=== PATIENT | female | born 1935 | race Caucasian/White ===

== ENCOUNTER 2016-12-03 10:08 | Emergency (ER) | payer MEDICARE ==
[~2016-12-03] VITALS: Ht 162.6 cm; Wt 87.5 kg
[2016-12-03] MEDS ORDERED: TORS10TA3 PO (11:00)
[2016-12-03] MEDS ORDERED: PRESCAP PO (11:00)
[2016-12-03] MEDS ORDERED: VITA50003 PO (11:00)
[2016-12-03] MEDS ORDERED: FISH1000 PO (11:00)
[2016-12-03] MEDS ORDERED: VITA-130 PO (11:00)
[2016-12-03] MEDS ORDERED: TYLE500T78 PO (11:00)
[2016-12-03] MEDS ORDERED: AMLO5TAB2 PO (11:00)
--- NOTE | 2016-12-03 13:02 | REP ---
Clinical: Chest pain . Comparison: 01/04/2016 . Technique: PA and lateral. Findings: The mediastinum and cardiac silhouette are normal. The lung baires demonstrate chronic changes without acute consolidation, effusion, or pneumothorax. The skeletal structures are intact and normal. Impression: 1. No acute cardiopulmonary process. Signed by Rasta Amezcua MD 12/03/2016 12:54 P
[2016-12-03 15:07] LABS: BASO % 0.2 % (0.0-1.0); EOS % 0.6 % (0.0-3.0); LARGE UNSTAINED CELL # 0.1 K/mm3 (0.0-0.4); LARGE UNSTAINED CELL % 1.4 % (0.0-4.0); LYMPH # 1.8 K/mm3 (1.5-4.5); LYMPH % 31.2 % (24.0-44.0); MEAN CORPUSCULAR HEMOGLOBIN 34.7 pg (27.0-33.0); MEAN CORPUSCULAR HGB CONC 33.3 g/dl (32.0-36.5); MEAN CORPUSCULAR VOLUME 104.1 fl (80.0-96.0); MONO # 0.3 K/mm3 (0.0-0.8); MONO % 5.7 % (0.0-5.0); NEUTROPHILS # 3.4 K/mm3 (1.8-7.7); PLATELET COUNT, AUTOMATED 205 k/mm3 (150-450); RED CELL DISTRIBUTION WIDTH 13.2 % (11.5-14.5); WHITE BLOOD COUNT 5.6 K/mm3 (4.0-10.0)
[2016-12-03 15:29] LABS: ANION GAP 11 MEQ/L (8-16); BLOOD UREA NITROGEN 32 MG/DL (7-18); CALCIUM LEVEL 9.3 MG/DL (8.8-10.2); CARBON DIOXIDE LEVEL 27 MEQ/L (21-32); CHLORIDE LEVEL 103 MEQ/L (98-107); CREATININE FOR GFR 1.45 MG/DL (0.55-1.02); GLOMERULAR FILTRATION RATE 36.7 (>32); GLUCOSE, FASTING 99 MG/DL (83-110); POTASSIUM SERUM 4.1 MEQ/L (3.5-5.1); SODIUM LEVEL 141 MEQ/L (136-145)
[2016-12-03 16:43] VITALS: BP 145/70
--- NOTE | 2016-12-04 10:15 | ECGEPIP ---
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
== END 2016-12-03 17:12 | disposition home or self-care (01) ==
LOC: M ED 11:46
DX: R42 Dizziness and giddiness (principal)

== ENCOUNTER → 2017-02-12 | Outpatient (REF) | payer MEDICARE ==
[~2017-02-12] MED LIST: AMLO5TAB2 PO; FISH1000 PO; PRESCAP PO; TORS10TA3 PO; TYLE500T78 PO; VITA-130 PO; VITA50003 PO
[2017-02-12 13:48] LABS: PERCENT SATURATION 25.6 % (13.2-37.4)
== END ==
LOC: M LAB REF 12:54
PROVIDERS: ATTEND Internal Medicine
DX: D64.9 Anemia, unspecified (principal); N25.81 Secondary hyperparathyroidism of renal origin

== ENCOUNTER → 2017-08-14 | Outpatient (REF) | payer MEDICARE ==
[~2017-08-14] MED LIST changes: -VITA-130 PO; +VITA1CAP40 PO; -VITA50003 PO; +VITA500T PO
[2017-08-14 18:56] LABS: FOLATE 11.5 NG/ML
== END ==
LOC: M LAB REF 17:08
PROVIDERS: ATTEND Internal Medicine
DX: D52.8 Other folate deficiency anemias (principal); N25.81 Secondary hyperparathyroidism of renal origin

== ENCOUNTER → 2019-08-21 | Outpatient (REF) | payer MEDICARE ==
[~2019-08-21] MED LIST changes: -AMLO5TAB2 PO; +AMLO5TAB6 PO; -VITA1CAP40 PO; +VITA50005 PO
== END ==
LOC: M LAB REF 12:16
PROVIDERS: ATTEND Internal Medicine
DX: N25.81 Secondary hyperparathyroidism of renal origin (principal)

== ENCOUNTER → 2020-02-23 | Outpatient (REF) | payer MEDICARE ==
[~2020-02-23] MED LIST changes: +AMLO1TAB24 PO; -AMLO5TAB6 PO; +VITA-243 PO; -VITA500T PO
== END ==
LOC: M LAB REF 18:11
PROVIDERS: ATTEND Internal Medicine
DX: N18.3 Chronic kidney disease, stage 3 (moderate) (principal); N25.81 Secondary hyperparathyroidism of renal origin

== ENCOUNTER → 2020-08-17 | Outpatient (REF) | payer MEDICARE | LOC: M LAB REF 17:03 | PROVIDERS: ATTEND Internal Medicine | DX: N25.81 Secondary hyperparathyroidism of renal origin (principal) ==

== ENCOUNTER → 2021-02-28 | Outpatient (REF) | payer MEDICARE | LOC: M LAB REF 16:21 | PROVIDERS: ATTEND Internal Medicine | DX: N25.81 Secondary hyperparathyroidism of renal origin (principal) ==

== ENCOUNTER → 2021-08-30 | Outpatient (REF) | payer MEDICARE | LOC: M LAB REF 11:52 | PROVIDERS: ATTEND Internal Medicine | DX: N25.81 Secondary hyperparathyroidism of renal origin (principal) ==

== ENCOUNTER → 2022-03-26 | Outpatient (REF) | payer MEDICARE | LOC: M LAB REF 12:13 | PROVIDERS: ATTEND Internal Medicine | DX: N18.32 Chronic kidney disease, stage 3b (principal) ==

== ENCOUNTER 2022-07-26 10:41 | Inpatient (IN) | payer MEDICARE ==
[~2022-07-26] VITALS: Ht 165.1 cm; Wt 92.9 kg
[2022-07-26 11:49] LABS: VENOUS BASE EXCESS -0.6 (-2.0-2.0); VENOUS HCO3 26.2 MEQ/L (23.0-27.0); VENOUS PARTIAL PRESSURE CO2 51.5 mmHg (38.0-50.0); VENOUS PARTIAL PRESSURE O2 55.6 mmHg (30.0-50.0); VENOUS PH 7.324 UNITS (7.330-7.430); VENOUS STANDARD HCO3 23.6 MEQ/L; VENOUS TOTAL CO2 27.8 MEQ/L (24.0-28.0)
[2022-07-26 11:51] LABS: BASO % 0.2 % (0.0-1.0); HEMATOCRIT 41.3 % (36.0-47.0); HEMOGLOBIN 13.8 g/dl (12.0-15.5); LYMPH # 0.8 10^3/uL (1.5-5.0); LYMPH % 7.4 % (24.0-44.0); MEAN CORPUSCULAR HEMOGLOBIN 34.1 pg (27.0-33.0); MEAN CORPUSCULAR HGB CONC 33.4 g/dl (32.0-36.5); MONO % 9.3 % (2.0-8.0); NEUTROPHILS # 8.9 10^3/uL (1.5-8.5); NEUTROPHILS % 82.7 % (36.0-66.0); RED BLOOD COUNT 4.05 10^6/uL (4.00-5.40); WHITE BLOOD COUNT 10.8 10^3/uL (4.0-10.0)
[2022-07-26] MEDS ORDERED: NS 1,000 ML IV ONE ×2 (12:05→15:40)
[2022-07-26 14:11] LABS: AMPHETAMINES LEVEL URINE NEGATIVE (NEGATIVE); BARBITURATES URINE NEGATIVE (NEGATIVE); BENZODIAZEPINES URINE NEGATIVE (NEGATIVE); CANNABINOIDS URINE NEGATIVE (NEGATIVE); COCAINE METABOLITE URINE NEGATIVE (NEGATIVE); METHADONE URINE NEGATIVE (NEGATIVE); OPIATES URINE NEGATIVE (NEGATIVE); PHENCYCLIDINE URINE NEGATIVE (NEGATIVE)
[2022-07-26 15:33] LABS: ACETAMINOPHEN LEVEL < 2.0 UG/ML (10.0-20.0); ALBUMIN 2.9 G/DL (3.2-5.2); ALKALINE PHOSPHATASE 101 U/L (46-116); ALT/SGPT 40 U/L (7.0-40); AST/SGOT 135 U/L (<34); BILIRUBIN,DIRECT 0.1 MG/DL (<0.4); BILIRUBIN,TOTAL 0.7 MG/DL (0.3-1.2); BLOOD UREA NITROGEN 31 MG/DL (9-23); CALCIUM LEVEL 9.6 MG/DL (8.3-10.6); CARBON DIOXIDE LEVEL 24 MMOL/L (20-31); CHLORIDE LEVEL 103 MMOL/L (98-107); CK-MB VALUE MASS 23.3 NG/ML (<3.6); CPK CREATINE PHOSPHOKINASE 3274 U/L (34-145); ETHYL ALCOHOL (ETHANOL) 0.005 % (0.000-0.010); GLOMERULAR FILTRATION RATE > 60.0 (>32); GLUCOSE, FASTING 94 MG/DL (74-106); MB/CK RELATIVE INDEX 0.71 (< OR =4); POTASSIUM SERUM 4.3 MMOL/L (3.5-5.1); SODIUM LEVEL 141 MMOL/L (136-145); THYROID STIMULATING HORMONE 2.537 uIU/ML (0.55-4.78); TOTAL PROTEIN 6.4 G/DL (5.7-8.2)
[2022-07-26 15:45] LABS: SALICYLATE LEVEL < 3.0 MG/DL (<30)
[2022-07-26 15:51] LABS: OSMOLALITY SERUM 303 MOSM/KG (280-301)
[2022-07-26] MEDS ORDERED: MED REC COMMENT (18:05)
[2022-07-26] MEDS ORDERED: ERGO500029 PO (18:05)
[2022-07-26] MEDS ORDERED: POTA10CA32 PO (18:05)
[2022-07-26] MEDS ORDERED: INDA1.253 PO (18:05)
[2022-07-26] MEDS ORDERED: AMLO1TAB24 PO (18:05)
[2022-07-26 18:06] LABS: ABG HCO3 24.3 MEQ/L (22.0-26.0); ABG O2 SATURATION 94.2 % (95.0-99.0); ABG PARTIAL PRESSURE CO2 38.5 mmHg (35.0-45.0); ABG PARTIAL PRESSURE O2 70.1 mmHg (75.0-100.0); ABG STANDARD HCO3 24.4 MEQ/L (22.0-26.0); ABG TOTAL CO2 25.5 MEQ/L (23.0-31.0); ABG pH (ARTERIAL) 7.418 UNITS (7.350-7.450)
[2022-07-26] MEDS ORDERED: HOME MED LIST COMPLETE! XX SCH (18:10)
[2022-07-26] MEDS ORDERED: LABETALOL 100MG/20ML VIAL IV PRN (18:30)
[2022-07-26] MEDS: NS 1,000 ML IV SCH (18:51)
[2022-07-26] MEDS ORDERED: ISOVUE-370 76% 100ML VIAL As Ordered ONE (22:30)
[2022-07-26] MEDS ORDERED: ASPIRIN 300 MG SUPP PR ONE (23:00)
[2022-07-26] MEDS: ATORVASTATIN 20 MG TAB PO SCH (23:56)
[2022-07-27 00:15] LABS: HEMOGLOBIN A1c 5.3 % (4.0-6.0)
[2022-07-27 01:14] LABS: CHOLESTEROL RISK RATIO 3.89 (<5); CK-MB VALUE MASS 18.2 NG/ML (<3.6); HDL CHOLESTEROL 49.6 MG/DL (>40); LDL CHOLESTEROL 120.6 MG/DL (<100); MB/CK RELATIVE INDEX 0.86 (< OR =4)
[2022-07-27 02:00] VITALS: BP 191/80
[2022-07-27] MEDS: NS 1,000 ML IV SCH ×3 (03:07→18:30)
[2022-07-27 04:00] VITALS: BP 158/67
[2022-07-27] MEDS: HEPARIN SOD (PORCINE) 5000UNITS/ML 1ML VIAL/SYRINGE SQ SCH ×3 (06:03→21:12)
[2022-07-27 07:26] LABS: HEMATOCRIT 33.1 % (36.0-47.0); MEAN CORPUSCULAR HEMOGLOBIN 34.4 pg (27.0-33.0); MEAN CORPUSCULAR HGB CONC 32.6 g/dl (32.0-36.5); MEAN CORPUSCULAR VOLUME 105.4 fl (80.0-96.0); PLATELET COUNT, AUTOMATED 215 10^3/uL (150-450); RED BLOOD COUNT 3.14 10^6/uL (4.00-5.40); WHITE BLOOD COUNT 7.9 10^3/uL (4.0-10.0)
[2022-07-27 07:39] LABS: HEMOGLOBIN 10.8 g/dl (12.0-15.5)
[2022-07-27 08:19] LABS: BLOOD UREA NITROGEN 26 MG/DL (9-23); CALCIUM LEVEL 8.6 MG/DL (8.3-10.6); CARBON DIOXIDE LEVEL 24 MMOL/L (20-31); CHLORIDE LEVEL 108 MMOL/L (98-107); CPK CREATINE PHOSPHOKINASE 1429 U/L (34-145); GLOMERULAR FILTRATION RATE > 60.0 (>32); GLUCOSE, FASTING 82 MG/DL (74-106); MAGNESIUM LEVEL 1.8 MG/DL (1.8-2.4); PHOSPHORUS LEVEL 3.3 MG/DL (2.4-5.1); POTASSIUM SERUM 3.6 MMOL/L (3.5-5.1); SODIUM LEVEL 143 MMOL/L (136-145)
[2022-07-27 08:29] VITALS: BP 156/67
[2022-07-27] MEDS ORDERED: ASPIRIN 300 MG SUPP PR SCH (09:00)
[2022-07-27] MEDS ORDERED: amLODIPine 5 MG TAB PO SCH (09:00)
[2022-07-27 13:35] VITALS: BP 175/75
[2022-07-27] MEDS ORDERED: MAGNESIUM OXIDE 400MG TAB (MAG-OX) PO ONE (14:55)
[2022-07-27] MEDS ORDERED: POTASSIUM CHLORIDE 10% LIQ 20 MEQ/15 ML UDC PO ONE (14:55)
[2022-07-27 15:52] VITALS: BP 168/70
[2022-07-27] MEDS: ASPIRIN 81MG ENTERIC TABLET PO SCH (16:35)
[2022-07-27] MEDS: amLODIPine 5 MG TAB PO SCH (16:36)
[2022-07-27 19:26] VITALS: BP 184/74
[2022-07-27] MEDS: ATORVASTATIN 20 MG TAB PO SCH (20:07)
[2022-07-27] MEDS ORDERED: TAMSULOSIN 0.4 MG CAP PO ONE (20:55)
[2022-07-28] VITALS (7 sets, daily range): BP systolic 139–165; BP diastolic 58–83
[2022-07-28] MEDS: NS 1,000 ML IV SCH (02:18)
[2022-07-28] MEDS: HEPARIN SOD (PORCINE) 5000UNITS/ML 1ML VIAL/SYRINGE SQ SCH ×3 (05:20→21:27)
[2022-07-28 05:54] LABS: HEMATOCRIT 30.8 % (36.0-47.0); HEMOGLOBIN 9.8 g/dl (12.0-15.5); MEAN CORPUSCULAR HGB CONC 31.8 g/dl (32.0-36.5); MEAN CORPUSCULAR VOLUME 106.9 fl (80.0-96.0); PLATELET COUNT, AUTOMATED 174 10^3/uL (150-450); RED BLOOD COUNT 2.88 10^6/uL (4.00-5.40); WHITE BLOOD COUNT 6.1 10^3/uL (4.0-10.0)
[2022-07-28 06:23] LABS: BLOOD UREA NITROGEN 26 MG/DL (9-23); CALCIUM LEVEL 8.3 MG/DL (8.3-10.6); CARBON DIOXIDE LEVEL 23 MMOL/L (20-31); CHLORIDE LEVEL 111 MMOL/L (98-107); CPK CREATINE PHOSPHOKINASE 793 U/L (34-145); GLOMERULAR FILTRATION RATE > 60.0 (>32); GLUCOSE, FASTING 95 MG/DL (74-106); MAGNESIUM LEVEL 1.8 MG/DL (1.8-2.4); PHOSPHORUS LEVEL 2.6 MG/DL (2.4-5.1); POTASSIUM SERUM 3.7 MMOL/L (3.5-5.1); SODIUM LEVEL 144 MMOL/L (136-145)
[2022-07-28] MEDS: ASPIRIN 81MG ENTERIC TABLET PO SCH (09:10)
[2022-07-28] MEDS: ACETAMINOPHEN TAB 650MG DOSE (2X325MG) PO PRN ×2 (09:17→20:02)
[2022-07-28] MEDS ORDERED: PILL CUTTER 1 EACH XX PRN (10:35)
[2022-07-28] MEDS: LOSARTAN 25 MG TAB PO SCH (10:43)
[2022-07-28] MEDS: amLODIPine 5 MG TAB PO SCH (18:05)
[2022-07-28] MEDS: ATORVASTATIN 20 MG TAB PO SCH (20:00)
[2022-07-29] VITALS: BP 150/64
[2022-07-29] MEDS: ACETAMINOPHEN TAB 650MG DOSE (2X325MG) PO PRN ×4 (01:58→21:15)
[2022-07-29 04:00] VITALS: BP 166/74
[2022-07-29] MEDS: HEPARIN SOD (PORCINE) 5000UNITS/ML 1ML VIAL/SYRINGE SQ SCH ×3 (05:38→21:15)
[2022-07-29 07:30] LABS: BLOOD UREA NITROGEN 25 MG/DL (9-23); CALCIUM LEVEL 8.1 MG/DL (8.3-10.6); CARBON DIOXIDE LEVEL 24 MMOL/L (20-31); CHLORIDE LEVEL 110 MMOL/L (98-107); CPK CREATINE PHOSPHOKINASE 486 U/L (34-145); CREATININE FOR GFR 0.87 MG/DL (0.55-1.30); GLOMERULAR FILTRATION RATE > 60.0 (>32); GLUCOSE, FASTING 91 MG/DL (74-106); MAGNESIUM LEVEL 1.9 MG/DL (1.8-2.4); PHOSPHORUS LEVEL 2.6 MG/DL (2.4-5.1); POTASSIUM SERUM 3.7 MMOL/L (3.5-5.1); SODIUM LEVEL 144 MMOL/L (136-145)
[2022-07-29 08:00] VITALS: BP 168/70
[2022-07-29] MEDS: ASPIRIN 81MG ENTERIC TABLET PO SCH (08:25)
[2022-07-29] MEDS: LOSARTAN 25 MG TAB PO SCH (08:26)
[2022-07-29] MEDS ORDERED: MORPHINE 2 MG/ML 1ML VIAL IV ONE (10:25)
[2022-07-29] MEDS ORDERED: LOSARTAN 25 MG TAB PO ONE (13:45)
[2022-07-29 14:00] VITALS: BP 142/78
[2022-07-29 16:00] VITALS: BP 152/60
[2022-07-29] MEDS: amLODIPine 5 MG TAB PO SCH (17:52)
[2022-07-29] MEDS ORDERED: BACLOFEN 10 MG TAB PO ONE (18:25)
[2022-07-29 20:27] VITALS: BP 170/75
[2022-07-29] MEDS ORDERED: hydrALAZINE 20MG/ML 1ML VIAL (J0360 PER 20MG) IV ONE (21:00)
[2022-07-29] MEDS: ATORVASTATIN 20 MG TAB PO SCH (21:15)
[2022-07-30] VITALS (20 sets, daily range): BP systolic 160–189; BP diastolic 66–83; O2SAT 93–96
[2022-07-30] MEDS: HEPARIN SOD (PORCINE) 5000UNITS/ML 1ML VIAL/SYRINGE SQ SCH ×3 (06:15→22:07)
[2022-07-30] MEDS ORDERED: DIOV80TA3 PO (08:39)
[2022-07-30] MEDS ORDERED: ATOR1TAB21 PO (08:39)
[2022-07-30] MEDS ORDERED: ASPI81TAEC PO (08:39)
[2022-07-30] MEDS ORDERED: LOSARTAN 25 MG TAB PO SCH ×2 (09:00)
[2022-07-30] MEDS: VALSARTAN 80 MG TAB (DIOVAN) PO SCH (09:07)
[2022-07-30] MEDS: ASPIRIN 81MG ENTERIC TABLET PO SCH (09:07)
[2022-07-30] MEDS: ACETAMINOPHEN TAB 650MG DOSE (2X325MG) PO PRN ×2 (09:09→13:36)
[2022-07-30 10:35] LABS: FERRITIN 196.5 NG/ML (7.3-270.7); PERCENT SATURATION 14.5 % (13.2-45.0)
[2022-07-30 11:06] LABS: FOLATE 14.68 NG/ML (>5.4)
[2022-07-30] MEDS ORDERED: BACLOFEN 10 MG TAB PO ONE (13:30)
[2022-07-30] MEDS: amLODIPine 5 MG TAB PO SCH ×2 (13:42→21:04)
[2022-07-30] MEDS ORDERED: CHLORTHALIDONE 25 MG TAB PO ONE (15:25)
[2022-07-30] MEDS ORDERED: hydrALAZINE 20MG/ML 1ML VIAL (J0360 PER 20MG) IV PRN (17:50)
[2022-07-30] MEDS: ATORVASTATIN 20 MG TAB PO SCH (21:04)
[2022-07-31 04:00] VITALS: BP 154/67
[2022-07-31] MEDS: HEPARIN SOD (PORCINE) 5000UNITS/ML 1ML VIAL/SYRINGE SQ SCH ×2 (05:55→13:24)
[2022-07-31 07:32] VITALS: BP 162/86
[2022-07-31] MEDS: amLODIPine 5 MG TAB PO SCH (08:39)
[2022-07-31 08:40] VITALS: BP 162/86
[2022-07-31] MEDS: ASPIRIN 81MG ENTERIC TABLET PO SCH (08:40)
[2022-07-31] MEDS: VALSARTAN 80 MG TAB (DIOVAN) PO SCH (08:40)
[2022-07-31] MEDS ORDERED: CHLORTHALIDONE 25 MG TAB PO SCH (09:00)
[2022-07-31 11:27] VITALS: BP 135/62
[2022-07-31 15:39] VITALS: BP 148/65
== END 2022-07-31 16:30 | DRG 64 ==
LOC: M ED 10:41 → M ED INP 18:28 → M PCU 07-27 01:25
PROVIDERS: ADMIT Internal Medicine; ATTEND Physical Medicine & Rehabilitation
PROC: B246ZZZ Ultrasonography of Right and Left Heart (ICD-10-PCS; principal; 2022-07-28)
DX: I63.89 Other cerebral infarction (principal); G93.41 Metabolic encephalopathy; M62.82 Rhabdomyolysis; N39.0 Urinary tract infection, site not specified; Z66 Do not resuscitate; I10 Essential (primary) hypertension; Z79.899 Other long term (current) drug therapy; Z88.0 Allergy status to penicillin; Z88.2 Allergy status to sulfonamides; Z88.8 Allergy status to other drugs, medicaments and biological substances; G47.33 Obstructive sleep apnea (adult) (pediatric); M79.661 Pain in right lower leg; D53.9 Nutritional anemia, unspecified; E86.0 Dehydration; B96.20 Unspecified Escherichia coli [E. coli] as the cause of diseases classified elsewhere

== ENCOUNTER 2022-07-31 13:56 | Inpatient (IN) | payer MEDICARE ==
[~2022-07-31] VITALS: Ht 160 cm; Wt 85.0 kg
[~2022-07-31 13:56] MED LIST changes: +ASPI81TAEC PO; +ATOR1TAB21 PO; +DIOV80TA3 PO; +ERGO500029 PO; +INDA1.253 PO; +MED REC COMMENT; +POTA10CA33 PO
[2022-07-31] MEDS ORDERED: BISACODYL 5MG TAB PO PRN (14:35)
[2022-07-31] MEDS ORDERED: ACETAMINOPHEN TAB 650MG DOSE (2X325MG) PO PRN (14:35)
[2022-07-31 16:00] VITALS: BP 155/76
[2022-07-31] MEDS: REMEDY PHYTOPLEX Z-GUARD PASTE 113GM TUBE (FROM STOREROOM PRODUCT) TOP SCH ×2 (16:00→20:19)
[2022-07-31] MEDS: **hydrALAZINE HCL** 25 MG TAB PO SCH (17:54)
[2022-07-31] MEDS: PANTOPRAZOLE 40MG TAB (PROTONIX) PO SCH (17:54)
[2022-07-31] MEDS: amLODIPine 5 MG TAB PO SCH (20:17)
[2022-07-31 20:18] VITALS: BP 144/60
[2022-07-31] MEDS: DOCUSATE SODIUM 100MG CAPSULE PO SCH (20:18)
[2022-07-31] MEDS: SENNA 8.6 MG TAB (SENOKOT) PO SCH (20:18)
[2022-07-31] MEDS: ATORVASTATIN 20 MG TAB PO SCH (20:18)
[2022-07-31] MEDS: cefTRIAXone SOD 1 GM in D5W MINI-BAG PLUS 50 ML IV SCH (20:18)
[2022-07-31] MEDS: HEPARIN SOD (PORCINE) 5000UNITS/ML 1ML VIAL/SYRINGE SC SCH (22:17)
[2022-07-31 23:53] VITALS: BP 158/50
[2022-08-01] MEDS: **hydrALAZINE HCL** 25 MG TAB PO SCH ×4 (00:02→17:54)
[2022-08-01] MEDS: HEPARIN SOD (PORCINE) 5000UNITS/ML 1ML VIAL/SYRINGE SC SCH ×4 (05:58→21:32)
[2022-08-01 06:00] VITALS: BP 142/52
[2022-08-01 06:40] LABS: BASO % 0.2 % (0.0-1.0); EOS # 0.1 10^3/uL (0.0-0.5); EOS % 1.6 % (0.0-3.0); HEMATOCRIT 34.6 % (36.0-47.0); HEMOGLOBIN 11.3 g/dl (12.0-15.5); LYMPH # 1.8 10^3/uL (1.5-5.0); LYMPH % 20.7 % (24.0-44.0); MEAN CORPUSCULAR HEMOGLOBIN 34.1 pg (27.0-33.0); MEAN CORPUSCULAR HGB CONC 32.7 g/dl (32.0-36.5); MEAN CORPUSCULAR VOLUME 104.5 fl (80.0-96.0); MONO # 0.8 10^3/uL (0.0-0.8); MONO % 9.5 % (2.0-8.0); NEUTROPHILS # 5.9 10^3/uL (1.5-8.5); NEUTROPHILS % 67.3 % (36.0-66.0); PLATELET COUNT, AUTOMATED 245 10^3/uL (150-450); RED BLOOD COUNT 3.31 10^6/uL (4.00-5.40); WHITE BLOOD COUNT 8.7 10^3/uL (4.0-10.0)
[2022-08-01 07:32] LABS: ALBUMIN 2.2 G/DL (3.2-5.2); BILIRUBIN,TOTAL 0.4 MG/DL (0.3-1.2); CALCIUM LEVEL 8.4 MG/DL (8.3-10.6); CREATININE FOR GFR 0.98 MG/DL (0.55-1.30); GLOMERULAR FILTRATION RATE 56.9 (>32); POTASSIUM SERUM 3.6 MMOL/L (3.5-5.1); TOTAL PROTEIN 5.5 G/DL (5.7-8.2)
[2022-08-01] MEDS: ASPIRIN 81MG ENTERIC TABLET PO SCH ×2 (08:11→08:13)
[2022-08-01] MEDS: amLODIPine 5 MG TAB PO SCH ×2 (08:11→20:26)
[2022-08-01] MEDS: DOCUSATE SODIUM 100MG CAPSULE PO SCH ×2 (08:11→20:25)
[2022-08-01] MEDS: VALSARTAN 80 MG TAB (DIOVAN) PO SCH (08:12)
[2022-08-01] MEDS: POTASSIUM CHLORIDE 10MEQ SR TABLET PO SCH (08:12)
[2022-08-01] MEDS: CHLORTHALIDONE 25 MG TAB PO SCH (08:12)
[2022-08-01] MEDS: PANTOPRAZOLE 40MG TAB (PROTONIX) PO SCH (08:12)
[2022-08-01] MEDS: REMEDY PHYTOPLEX Z-GUARD PASTE 113GM TUBE (FROM STOREROOM PRODUCT) TOP SCH ×3 (08:13→20:25)
[2022-08-01] MEDS: LIDOCAINE 5% (LIDODERM) PATCH TD SCH (11:26)
[2022-08-01 14:00] VITALS: BP 107/52
[2022-08-01] MEDS: cefTRIAXone SOD 1 GM in D5W MINI-BAG PLUS 50 ML IV SCH (17:53)
[2022-08-01] MEDS: ACETAMINOPHEN 500 MG TAB PO PRN (18:19)
[2022-08-01 20:00] VITALS: BP 143/65
[2022-08-01] MEDS: ATORVASTATIN 20 MG TAB PO SCH (20:25)
[2022-08-01] MEDS: SENNA 8.6 MG TAB (SENOKOT) PO SCH (20:25)
[2022-08-02] MEDS: **hydrALAZINE HCL** 25 MG TAB PO SCH ×4 (00:19→17:42)
[2022-08-02] MEDS: HEPARIN SOD (PORCINE) 5000UNITS/ML 1ML VIAL/SYRINGE SC SCH ×3 (05:15→21:02)
[2022-08-02 05:54] VITALS: BP 161/72
[2022-08-02] MEDS: ASPIRIN 81MG ENTERIC TABLET PO SCH (09:27)
[2022-08-02] MEDS: DOCUSATE SODIUM 100MG CAPSULE PO SCH ×2 (09:27→20:58)
[2022-08-02] MEDS: PANTOPRAZOLE 40MG TAB (PROTONIX) PO SCH (09:28)
[2022-08-02] MEDS: CHLORTHALIDONE 25 MG TAB PO SCH (09:28)
[2022-08-02] MEDS: amLODIPine 5 MG TAB PO SCH ×2 (09:28→20:58)
[2022-08-02] MEDS: DULoxetine 20MG CAP (CYMBALTA) PO SCH (09:28)
[2022-08-02] MEDS: ACETAMINOPHEN 500 MG TAB PO PRN ×2 (09:29→18:20)
[2022-08-02] MEDS: REMEDY PHYTOPLEX Z-GUARD PASTE 113GM TUBE (FROM STOREROOM PRODUCT) TOP SCH ×3 (09:30→20:59)
[2022-08-02] MEDS: LIDOCAINE 5% (LIDODERM) PATCH TD SCH (09:30)
[2022-08-02] MEDS: VALSARTAN 80 MG TAB (DIOVAN) PO SCH (09:32)
[2022-08-02 14:00] VITALS: BP 151/69
[2022-08-02] MEDS: cefTRIAXone SOD 1 GM in D5W MINI-BAG PLUS 50 ML IV SCH (17:42)
[2022-08-02 20:20] VITALS: BP 138/63
[2022-08-02] MEDS: SENNA 8.6 MG TAB (SENOKOT) PO SCH (20:58)
[2022-08-02] MEDS: ATORVASTATIN 20 MG TAB PO SCH (20:59)
[2022-08-03] MEDS: **hydrALAZINE HCL** 25 MG TAB PO SCH ×5 (00:07→23:01)
[2022-08-03] MEDS: HEPARIN SOD (PORCINE) 5000UNITS/ML 1ML VIAL/SYRINGE SC SCH ×3 (05:19→22:57)
[2022-08-03] MEDS: ACETAMINOPHEN 500 MG TAB PO PRN ×2 (05:25→17:32)
[2022-08-03 06:00] VITALS: BP 134/56
[2022-08-03 07:17] LABS: BASO % 0.3 % (0.0-1.0); EOS # 0.1 10^3/uL (0.0-0.5); EOS % 1.5 % (0.0-3.0); HEMATOCRIT 30.5 % (36.0-47.0); LYMPH # 1.5 10^3/uL (1.5-5.0); LYMPH % 21.6 % (24.0-44.0); MEAN CORPUSCULAR HEMOGLOBIN 34.5 pg (27.0-33.0); MEAN CORPUSCULAR HGB CONC 32.8 g/dl (32.0-36.5); MEAN CORPUSCULAR VOLUME 105.2 fl (80.0-96.0); MONO # 0.7 10^3/uL (0.0-0.8); MONO % 9.5 % (2.0-8.0); NEUTROPHILS # 4.7 10^3/uL (1.5-8.5); NEUTROPHILS % 66.3 % (36.0-66.0); PLATELET COUNT, AUTOMATED 251 10^3/uL (150-450); WHITE BLOOD COUNT 7.1 10^3/uL (4.0-10.0)
[2022-08-03 07:46] LABS: CALCIUM LEVEL 8.4 MG/DL (8.3-10.6); CREATININE FOR GFR 1.21 MG/DL (0.55-1.30); GLOMERULAR FILTRATION RATE 44.6 (>32); POTASSIUM SERUM 3.8 MMOL/L (3.5-5.1)
[2022-08-03] MEDS: ASPIRIN 81MG ENTERIC TABLET PO SCH (08:54)
[2022-08-03] MEDS: VALSARTAN 80 MG TAB (DIOVAN) PO SCH (08:54)
[2022-08-03] MEDS: DULoxetine 20MG CAP (CYMBALTA) PO SCH (08:55)
[2022-08-03] MEDS: POTASSIUM CHLORIDE 10MEQ SR TABLET PO SCH (08:55)
[2022-08-03] MEDS: amLODIPine 5 MG TAB PO SCH ×2 (08:55→20:44)
[2022-08-03] MEDS: PANTOPRAZOLE 40MG TAB (PROTONIX) PO SCH (08:55)
[2022-08-03] MEDS: DOCUSATE SODIUM 100MG CAPSULE PO SCH ×2 (08:55→20:45)
[2022-08-03] MEDS: CHLORTHALIDONE 25 MG TAB PO SCH (08:55)
[2022-08-03] MEDS: LIDOCAINE 5% (LIDODERM) PATCH TD SCH (08:57)
[2022-08-03] MEDS: REMEDY PHYTOPLEX Z-GUARD PASTE 113GM TUBE (FROM STOREROOM PRODUCT) TOP SCH ×3 (08:58→20:46)
[2022-08-03 14:00] VITALS: BP 144/71
[2022-08-03] MEDS: CEFDINIR 300 MG CAP (OMNICEF) PO SCH (17:27)
[2022-08-03 20:06] VITALS: BP 138/54
[2022-08-03] MEDS: ATORVASTATIN 20 MG TAB PO SCH (20:44)
[2022-08-03] MEDS: SENNA 8.6 MG TAB (SENOKOT) PO SCH (20:45)
[2022-08-04 04:16] VITALS: BP 146/56
[2022-08-04] MEDS: HEPARIN SOD (PORCINE) 5000UNITS/ML 1ML VIAL/SYRINGE SC SCH ×3 (05:34→22:35)
[2022-08-04] MEDS: **hydrALAZINE HCL** 25 MG TAB PO SCH ×2 (05:37→12:21)
[2022-08-04 08:51] VITALS: BP 120/68
[2022-08-04] MEDS: ASPIRIN 81MG ENTERIC TABLET PO SCH (08:53)
[2022-08-04] MEDS: DOCUSATE SODIUM 100MG CAPSULE PO SCH ×2 (08:53→22:35)
[2022-08-04] MEDS: DULoxetine 20MG CAP (CYMBALTA) PO SCH (08:53)
[2022-08-04] MEDS: VALSARTAN 80 MG TAB (DIOVAN) PO SCH (08:54)
[2022-08-04] MEDS: PANTOPRAZOLE 40MG TAB (PROTONIX) PO SCH (08:54)
[2022-08-04] MEDS: LIDOCAINE 5% (LIDODERM) PATCH TD SCH (08:55)
[2022-08-04] MEDS: REMEDY PHYTOPLEX Z-GUARD PASTE 113GM TUBE (FROM STOREROOM PRODUCT) TOP SCH ×3 (08:55→22:37)
[2022-08-04] MEDS: CHLORTHALIDONE 25 MG TAB PO SCH (08:56)
[2022-08-04] MEDS: amLODIPine 5 MG TAB PO SCH ×2 (08:56→22:36)
[2022-08-04 12:19] VITALS: BP 122/70
[2022-08-04 14:00] VITALS: BP 120/55
[2022-08-04] MEDS: CEFDINIR 300 MG CAP (OMNICEF) PO SCH (17:58)
[2022-08-04 20:00] VITALS: BP 138/63
[2022-08-04] MEDS: SENNA 8.6 MG TAB (SENOKOT) PO SCH (22:35)
[2022-08-04] MEDS: ATORVASTATIN 20 MG TAB PO SCH (22:35)
[2022-08-05] MEDS: HEPARIN SOD (PORCINE) 5000UNITS/ML 1ML VIAL/SYRINGE SC SCH ×3 (05:26→20:49)
[2022-08-05 06:00] VITALS: BP 127/60
[2022-08-05] MEDS: REMEDY PHYTOPLEX Z-GUARD PASTE 113GM TUBE (FROM STOREROOM PRODUCT) TOP SCH ×3 (09:00→20:49)
[2022-08-05] MEDS: DULoxetine 20MG CAP (CYMBALTA) PO SCH (09:08)
[2022-08-05] MEDS: DOCUSATE SODIUM 100MG CAPSULE PO SCH ×2 (09:08→20:48)
[2022-08-05] MEDS: amLODIPine 5 MG TAB PO SCH ×2 (09:09→20:48)
[2022-08-05] MEDS: VALSARTAN 80 MG TAB (DIOVAN) PO SCH (09:09)
[2022-08-05] MEDS: PANTOPRAZOLE 40MG TAB (PROTONIX) PO SCH (09:09)
[2022-08-05] MEDS: ASPIRIN 81MG ENTERIC TABLET PO SCH (09:09)
[2022-08-05] MEDS: LIDOCAINE 5% (LIDODERM) PATCH TD SCH (09:10)
[2022-08-05 14:00] VITALS: BP 130/62
[2022-08-05] MEDS: CEFDINIR 300 MG CAP (OMNICEF) PO SCH (17:00)
[2022-08-05 20:00] VITALS: BP 132/58
[2022-08-05] MEDS: ATORVASTATIN 20 MG TAB PO SCH (20:48)
[2022-08-05] MEDS: SENNA 8.6 MG TAB (SENOKOT) PO SCH (20:48)
[2022-08-06] MEDS: HEPARIN SOD (PORCINE) 5000UNITS/ML 1ML VIAL/SYRINGE SC SCH ×3 (05:16→20:47)
[2022-08-06 06:00] VITALS: BP 130/62
[2022-08-06 07:08] LABS: BASO % 0.3 % (0.0-1.0); EOS # 0.1 10^3/uL (0.0-0.5); EOS % 1.6 % (0.0-3.0); HEMATOCRIT 30.6 % (36.0-47.0); LYMPH # 1.8 10^3/uL (1.5-5.0); LYMPH % 28.8 % (24.0-44.0); MEAN CORPUSCULAR HEMOGLOBIN 34.4 pg (27.0-33.0); MEAN CORPUSCULAR HGB CONC 32.7 g/dl (32.0-36.5); MEAN CORPUSCULAR VOLUME 105.2 fl (80.0-96.0); MONO # 0.6 10^3/uL (0.0-0.8); NEUTROPHILS # 3.7 10^3/uL (1.5-8.5); NEUTROPHILS % 59.3 % (36.0-66.0); PLATELET COUNT, AUTOMATED 305 10^3/uL (150-450); RED BLOOD COUNT 2.91 10^6/uL (4.00-5.40); WHITE BLOOD COUNT 6.2 10^3/uL (4.0-10.0)
[2022-08-06 07:35] LABS: CALCIUM LEVEL 9.1 MG/DL (8.3-10.6); CREATININE FOR GFR 1.16 MG/DL (0.55-1.30); GLOMERULAR FILTRATION RATE 46.8 (>32); POTASSIUM SERUM 4.4 MMOL/L (3.5-5.1)
[2022-08-06] MEDS: LIDOCAINE 5% (LIDODERM) PATCH TD SCH (08:38)
[2022-08-06] MEDS: ASPIRIN 81MG ENTERIC TABLET PO SCH (08:38)
[2022-08-06] MEDS: DULoxetine 20MG CAP (CYMBALTA) PO SCH (08:38)
[2022-08-06] MEDS: VALSARTAN 80 MG TAB (DIOVAN) PO SCH (08:38)
[2022-08-06] MEDS: DOCUSATE SODIUM 100MG CAPSULE PO SCH ×2 (08:38→20:46)
[2022-08-06] MEDS: PANTOPRAZOLE 40MG TAB (PROTONIX) PO SCH (08:38)
[2022-08-06] MEDS: amLODIPine 5 MG TAB PO SCH ×2 (08:38→20:12)
[2022-08-06] MEDS: REMEDY PHYTOPLEX Z-GUARD PASTE 113GM TUBE (FROM STOREROOM PRODUCT) TOP SCH ×3 (08:39→20:13)
[2022-08-06 14:00] VITALS: BP 130/60
[2022-08-06] MEDS: ACETAMINOPHEN 500 MG TAB PO PRN (17:47)
[2022-08-06 20:11] VITALS: BP 108/52
[2022-08-06] MEDS: SENNA 8.6 MG TAB (SENOKOT) PO SCH (20:46)
[2022-08-06] MEDS: ATORVASTATIN 20 MG TAB PO SCH (20:47)
[2022-08-07] MEDS: HEPARIN SOD (PORCINE) 5000UNITS/ML 1ML VIAL/SYRINGE SC SCH ×3 (05:42→21:12)
[2022-08-07 06:05] VITALS: BP 148/72
[2022-08-07] MEDS: VALSARTAN 80 MG TAB (DIOVAN) PO SCH (08:46)
[2022-08-07] MEDS: PANTOPRAZOLE 40MG TAB (PROTONIX) PO SCH (08:46)
[2022-08-07] MEDS: DULoxetine 20MG CAP (CYMBALTA) PO SCH (08:46)
[2022-08-07] MEDS: DOCUSATE SODIUM 100MG CAPSULE PO SCH ×2 (08:46→21:07)
[2022-08-07] MEDS: amLODIPine 5 MG TAB PO SCH ×2 (08:46→21:00)
[2022-08-07] MEDS: LIDOCAINE 5% (LIDODERM) PATCH TD SCH (08:46)
[2022-08-07] MEDS: REMEDY PHYTOPLEX Z-GUARD PASTE 113GM TUBE (FROM STOREROOM PRODUCT) TOP SCH ×3 (08:48→21:09)
[2022-08-07] MEDS: ASPIRIN 81MG ENTERIC TABLET PO SCH (08:50)
[2022-08-07] MEDS: ACETAMINOPHEN 500 MG TAB PO PRN ×2 (11:24→21:08)
[2022-08-07 14:00] VITALS: BP 142/63
[2022-08-07 20:00] VITALS: BP 110/58
[2022-08-07] MEDS: SODIUM CHLORIDE NASAL 0.65% SPRAY BTL (OCEAN) SCH (21:00)
[2022-08-07] MEDS: FLUTICASONE PROP 0.05% NASAL SPRAY 16 GM (FLONASE) NARES SCH (21:00)
[2022-08-07] MEDS: COMBIVENT RESPIMAT 100-20MCG INHALER 4GM INH SCH (21:00)
[2022-08-07] MEDS: SENNA 8.6 MG TAB (SENOKOT) PO SCH (21:07)
[2022-08-07] MEDS: ATORVASTATIN 20 MG TAB PO SCH (21:07)
[2022-08-08] MEDS: HEPARIN SOD (PORCINE) 5000UNITS/ML 1ML VIAL/SYRINGE SC SCH ×3 (05:19→20:43)
[2022-08-08 06:00] VITALS: BP 139/65
[2022-08-08 06:33] LABS: BASO % 0.6 % (0.0-1.0); EOS # 0.1 10^3/uL (0.0-0.5); EOS % 2.4 % (0.0-3.0); HEMATOCRIT 27.1 % (36.0-47.0); HEMOGLOBIN 8.7 g/dl (12.0-15.5); LYMPH % 40.4 % (24.0-44.0); MEAN CORPUSCULAR HGB CONC 32.1 g/dl (32.0-36.5); MEAN CORPUSCULAR VOLUME 105.9 fl (80.0-96.0); MONO # 0.6 10^3/uL (0.0-0.8); MONO % 12.1 % (2.0-8.0); NEUTROPHILS # 2.2 10^3/uL (1.5-8.5); NEUTROPHILS % 43.9 % (36.0-66.0); PLATELET COUNT, AUTOMATED 289 10^3/uL (150-450); RED BLOOD COUNT 2.56 10^6/uL (4.00-5.40)
[2022-08-08 07:09] LABS: CALCIUM LEVEL 8.7 MG/DL (8.3-10.6)
[2022-08-08 07:11] LABS: CREATININE FOR GFR 1.33 MG/DL (0.55-1.30)
[2022-08-08 07:15] LABS: POTASSIUM SERUM 5.2 MMOL/L (3.5-5.1)
[2022-08-08] MEDS: ASPIRIN 81MG ENTERIC TABLET PO SCH (08:54)
[2022-08-08] MEDS: DOCUSATE SODIUM 100MG CAPSULE PO SCH ×2 (08:55→20:41)
[2022-08-08] MEDS: PANTOPRAZOLE 40MG TAB (PROTONIX) PO SCH (08:55)
[2022-08-08] MEDS: SODIUM CHLORIDE NASAL 0.65% SPRAY BTL (OCEAN) SCH ×3 (08:55→20:38)
[2022-08-08] MEDS: FLUTICASONE PROP 0.05% NASAL SPRAY 16 GM (FLONASE) NARES SCH ×2 (08:55→20:38)
[2022-08-08] MEDS: amLODIPine 5 MG TAB PO SCH ×2 (08:55→20:41)
[2022-08-08] MEDS: VALSARTAN 80 MG TAB (DIOVAN) PO SCH (08:56)
[2022-08-08] MEDS: LIDOCAINE 5% (LIDODERM) PATCH TD SCH ×2 (08:57→09:15)
[2022-08-08] MEDS: REMEDY PHYTOPLEX Z-GUARD PASTE 113GM TUBE (FROM STOREROOM PRODUCT) TOP SCH ×3 (09:00→20:42)
[2022-08-08] MEDS: COMBIVENT RESPIMAT 100-20MCG INHALER 4GM INH SCH ×3 (09:00→20:25)
[2022-08-08] MEDS: DULoxetine 20MG CAP (CYMBALTA) PO SCH (09:08)
[2022-08-08] MEDS ORDERED: NS 500 ML IV ONE (09:35)
[2022-08-08] MEDS ORDERED: SOD POLYSTYRENE SULFONATE SUSP 15GM 60ML UD PO ONE (10:00)
[2022-08-08] MEDS: BISACODYL 5MG TAB PO SCH (12:54)
[2022-08-08 13:58] VITALS: BP 122/69
[2022-08-08] MEDS: guaiFENesin 200 MG TAB PO SCH ×2 (16:56→20:41)
[2022-08-08 18:00] VITALS: BP 140/70
[2022-08-08] MEDS: ACETAMINOPHEN 500 MG TAB PO PRN (20:40)
[2022-08-08] MEDS: ATORVASTATIN 20 MG TAB PO SCH (20:41)
[2022-08-08] MEDS: SENNA 8.6 MG TAB (SENOKOT) PO SCH (20:42)
[2022-08-09 05:17] VITALS: BP 120/60
[2022-08-09] MEDS: HEPARIN SOD (PORCINE) 5000UNITS/ML 1ML VIAL/SYRINGE SC SCH ×3 (05:43→21:31)
[2022-08-09] MEDS: COMBIVENT RESPIMAT 100-20MCG INHALER 4GM INH SCH ×3 (07:01→18:30)
[2022-08-09 07:04] LABS: CALCIUM LEVEL 8.8 MG/DL (8.3-10.6); CREATININE FOR GFR 1.14 MG/DL (0.55-1.30); GLOMERULAR FILTRATION RATE 47.8 (>32); POTASSIUM SERUM 4.3 MMOL/L (3.5-5.1)
[2022-08-09] MEDS: DULoxetine 30MG CAPSULE (CYMBALTA) PO SCH (09:00)
[2022-08-09] MEDS ORDERED: VALSARTAN 80 MG TAB (DIOVAN) PO SCH (09:00)
[2022-08-09] MEDS: BISACODYL 5MG TAB PO SCH (09:00)
[2022-08-09] MEDS: amLODIPine 5 MG TAB PO SCH ×2 (09:00→21:31)
[2022-08-09] MEDS: DOCUSATE SODIUM 100MG CAPSULE PO SCH ×2 (09:00→21:30)
[2022-08-09] MEDS: PANTOPRAZOLE 40MG TAB (PROTONIX) PO SCH (09:00)
[2022-08-09] MEDS: ASPIRIN 81MG ENTERIC TABLET PO SCH (09:00)
[2022-08-09] MEDS: guaiFENesin 200 MG TAB PO SCH ×3 (09:00→21:31)
[2022-08-09] MEDS: LIDOCAINE 5% (LIDODERM) PATCH TD SCH (09:01)
[2022-08-09] MEDS: ACETAMINOPHEN 500 MG TAB PO PRN ×2 (09:01→16:58)
[2022-08-09] MEDS: REMEDY PHYTOPLEX Z-GUARD PASTE 113GM TUBE (FROM STOREROOM PRODUCT) TOP SCH ×3 (09:03→21:33)
[2022-08-09] MEDS: FLUTICASONE PROP 0.05% NASAL SPRAY 16 GM (FLONASE) NARES SCH ×2 (09:12→21:00)
[2022-08-09] MEDS: SODIUM CHLORIDE NASAL 0.65% SPRAY BTL (OCEAN) SCH ×3 (09:12→21:35)
[2022-08-09] MEDS: DICLOFENAC EPOLAMINE 1.3% PATCH TOP SCH ×2 (12:28→21:32)
[2022-08-09 14:00] VITALS: BP 124/57
[2022-08-09 20:00] VITALS: BP 122/59
[2022-08-09] MEDS: SENNA 8.6 MG TAB (SENOKOT) PO SCH (21:31)
[2022-08-09] MEDS: ATORVASTATIN 20 MG TAB PO SCH (21:31)
[2022-08-10 05:15] VITALS: BP 164/42
[2022-08-10] MEDS: HEPARIN SOD (PORCINE) 5000UNITS/ML 1ML VIAL/SYRINGE SC SCH ×3 (05:34→20:20)
[2022-08-10 06:01] VITALS: BP 126/61
[2022-08-10 06:42] LABS: BASO % 0.4 % (0.0-1.0); EOS # 0.1 10^3/uL (0.0-0.5); EOS % 2.7 % (0.0-3.0); HEMATOCRIT 26.3 % (36.0-47.0); HEMOGLOBIN 8.5 g/dl (12.0-15.5); LYMPH # 1.9 10^3/uL (1.5-5.0); LYMPH % 39.4 % (24.0-44.0); MEAN CORPUSCULAR HGB CONC 32.3 g/dl (32.0-36.5); MEAN CORPUSCULAR VOLUME 105.2 fl (80.0-96.0); MONO # 0.5 10^3/uL (0.0-0.8); MONO % 10.3 % (2.0-8.0); NEUTROPHILS # 2.2 10^3/uL (1.5-8.5); NEUTROPHILS % 46.8 % (36.0-66.0); PLATELET COUNT, AUTOMATED 305 10^3/uL (150-450); WHITE BLOOD COUNT 4.8 10^3/uL (4.0-10.0)
[2022-08-10] MEDS: COMBIVENT RESPIMAT 100-20MCG INHALER 4GM INH SCH ×3 (08:27→21:00)
[2022-08-10] MEDS: DULoxetine 30MG CAPSULE (CYMBALTA) PO SCH (08:58)
[2022-08-10] MEDS: PANTOPRAZOLE 40MG TAB (PROTONIX) PO SCH (08:58)
[2022-08-10] MEDS: amLODIPine 5 MG TAB PO SCH ×2 (08:59→20:20)
[2022-08-10] MEDS: guaiFENesin 200 MG TAB PO SCH ×3 (08:59→20:20)
[2022-08-10] MEDS: ASPIRIN 81MG ENTERIC TABLET PO SCH (08:59)
[2022-08-10] MEDS: BISACODYL 5MG TAB PO SCH (09:00)
[2022-08-10] MEDS: DICLOFENAC EPOLAMINE 1.3% PATCH TOP SCH ×2 (09:00→20:21)
[2022-08-10] MEDS: DOCUSATE SODIUM 100MG CAPSULE PO SCH ×2 (09:00→20:21)
[2022-08-10] MEDS: LIDOCAINE 5% (LIDODERM) PATCH TD SCH (09:00)
[2022-08-10] MEDS: SODIUM CHLORIDE NASAL 0.65% SPRAY BTL (OCEAN) SCH ×3 (09:00→20:21)
[2022-08-10] MEDS: REMEDY PHYTOPLEX Z-GUARD PASTE 113GM TUBE (FROM STOREROOM PRODUCT) TOP SCH ×3 (09:01→20:22)
[2022-08-10] MEDS: FLUTICASONE PROP 0.05% NASAL SPRAY 16 GM (FLONASE) NARES SCH ×2 (09:01→20:21)
[2022-08-10 14:00] VITALS: BP 134/63
[2022-08-10 17:39] LABS: CALCIUM LEVEL 8.4 MG/DL (8.3-10.6); CREATININE FOR GFR 1.21 MG/DL (0.55-1.30); GLOMERULAR FILTRATION RATE 44.6 (>32); POTASSIUM SERUM 4.1 MMOL/L (3.5-5.1)
[2022-08-10 20:00] VITALS: BP 125/59
[2022-08-10] MEDS: ATORVASTATIN 20 MG TAB PO SCH (20:19)
[2022-08-10] MEDS: SENNA 8.6 MG TAB (SENOKOT) PO SCH (20:21)
[2022-08-10] MEDS: ACETAMINOPHEN 500 MG TAB PO PRN (20:31)
[2022-08-11] MEDS: HEPARIN SOD (PORCINE) 5000UNITS/ML 1ML VIAL/SYRINGE SC SCH ×3 (05:13→20:51)
[2022-08-11 06:00] VITALS: BP 132/62
[2022-08-11] MEDS: COMBIVENT RESPIMAT 100-20MCG INHALER 4GM INH SCH ×3 (08:30→20:05)
[2022-08-11] MEDS: guaiFENesin 200 MG TAB PO SCH ×3 (08:45→20:44)
[2022-08-11] MEDS: DICLOFENAC EPOLAMINE 1.3% PATCH TOP SCH ×2 (08:45→20:44)
[2022-08-11] MEDS: LIDOCAINE 5% (LIDODERM) PATCH TD SCH (08:45)
[2022-08-11] MEDS: DOCUSATE SODIUM 100MG CAPSULE PO SCH ×3 (08:46→20:48)
[2022-08-11] MEDS: DULoxetine 30MG CAPSULE (CYMBALTA) PO SCH (08:46)
[2022-08-11] MEDS: PANTOPRAZOLE 40MG TAB (PROTONIX) PO SCH (08:46)
[2022-08-11] MEDS: BISACODYL 5MG TAB PO SCH (08:46)
[2022-08-11] MEDS: amLODIPine 5 MG TAB PO SCH ×2 (08:46→20:44)
[2022-08-11] MEDS: ASPIRIN 81MG ENTERIC TABLET PO SCH (08:46)
[2022-08-11] MEDS: SODIUM CHLORIDE NASAL 0.65% SPRAY BTL (OCEAN) SCH ×3 (08:47→20:45)
[2022-08-11] MEDS: FLUTICASONE PROP 0.05% NASAL SPRAY 16 GM (FLONASE) NARES SCH ×2 (08:47→20:45)
[2022-08-11] MEDS: REMEDY PHYTOPLEX Z-GUARD PASTE 113GM TUBE (FROM STOREROOM PRODUCT) TOP SCH ×3 (09:00→20:45)
[2022-08-11 14:00] VITALS: BP 144/63
[2022-08-11] MEDS: SENNA 8.6 MG TAB (SENOKOT) PO SCH ×2 (19:15→20:48)
[2022-08-11 20:00] VITALS: BP 125/59
[2022-08-11] MEDS: ATORVASTATIN 20 MG TAB PO SCH (20:44)
[2022-08-12] MEDS: HEPARIN SOD (PORCINE) 5000UNITS/ML 1ML VIAL/SYRINGE SC SCH ×3 (05:13→21:22)
[2022-08-12 06:00] VITALS: BP 149/66
[2022-08-12] MEDS: guaiFENesin 200 MG TAB PO SCH ×3 (07:25→21:19)
[2022-08-12] MEDS: DICLOFENAC EPOLAMINE 1.3% PATCH TOP SCH ×2 (07:25→21:19)
[2022-08-12] MEDS: ASPIRIN 81MG ENTERIC TABLET PO SCH (07:25)
[2022-08-12] MEDS: amLODIPine 5 MG TAB PO SCH ×2 (07:25→21:20)
[2022-08-12] MEDS: LIDOCAINE 5% (LIDODERM) PATCH TD SCH (07:26)
[2022-08-12] MEDS: BISACODYL 5MG TAB PO SCH (07:26)
[2022-08-12] MEDS: DOCUSATE SODIUM 100MG CAPSULE PO SCH ×2 (07:26→21:19)
[2022-08-12] MEDS: PANTOPRAZOLE 40MG TAB (PROTONIX) PO SCH (07:26)
[2022-08-12] MEDS: SODIUM CHLORIDE NASAL 0.65% SPRAY BTL (OCEAN) SCH ×3 (07:26→21:24)
[2022-08-12] MEDS: FLUTICASONE PROP 0.05% NASAL SPRAY 16 GM (FLONASE) NARES SCH ×2 (07:26→21:24)
[2022-08-12] MEDS: DULoxetine 30MG CAPSULE (CYMBALTA) PO SCH (07:26)
[2022-08-12] MEDS: REMEDY PHYTOPLEX Z-GUARD PASTE 113GM TUBE (FROM STOREROOM PRODUCT) TOP SCH ×3 (07:27→21:24)
[2022-08-12] MEDS: COMBIVENT RESPIMAT 100-20MCG INHALER 4GM INH SCH ×3 (08:08→19:37)
[2022-08-12 14:00] VITALS: BP 156/50
[2022-08-12 18:30] VITALS: BP 122/50
[2022-08-12] MEDS: ATORVASTATIN 20 MG TAB PO SCH (21:19)
[2022-08-12] MEDS: ACETAMINOPHEN 500 MG TAB PO PRN (21:22)
[2022-08-12] MEDS: SENNA 8.6 MG TAB (SENOKOT) PO SCH (21:24)
[2022-08-13] MEDS: HEPARIN SOD (PORCINE) 5000UNITS/ML 1ML VIAL/SYRINGE SC SCH ×3 (06:06→21:00)
[2022-08-13] MEDS: ACETAMINOPHEN 500 MG TAB PO PRN (06:07)
[2022-08-13 06:45] LABS: BASO % 0.4 % (0.0-1.0); EOS # 0.1 10^3/uL (0.0-0.5); EOS % 2.5 % (0.0-3.0); HEMATOCRIT 27.5 % (36.0-47.0); HEMOGLOBIN 8.9 g/dl (12.0-15.5); LYMPH # 1.5 10^3/uL (1.5-5.0); MEAN CORPUSCULAR HEMOGLOBIN 34.5 pg (27.0-33.0); MEAN CORPUSCULAR HGB CONC 32.4 g/dl (32.0-36.5); MEAN CORPUSCULAR VOLUME 106.6 fl (80.0-96.0); MONO # 0.5 10^3/uL (0.0-0.8); MONO % 10.2 % (2.0-8.0); NEUTROPHILS # 2.7 10^3/uL (1.5-8.5); NEUTROPHILS % 55.5 % (36.0-66.0); PLATELET COUNT, AUTOMATED 294 10^3/uL (150-450); RED BLOOD COUNT 2.58 10^6/uL (4.00-5.40); WHITE BLOOD COUNT 4.8 10^3/uL (4.0-10.0)
[2022-08-13 07:00] VITALS: BP 138/50
[2022-08-13 07:07] LABS: CALCIUM LEVEL 8.8 MG/DL (8.3-10.6); CREATININE FOR GFR 1.16 MG/DL (0.55-1.30); GLOMERULAR FILTRATION RATE 46.8 (>32); POTASSIUM SERUM 4.4 MMOL/L (3.5-5.1)
[2022-08-13] MEDS: COMBIVENT RESPIMAT 100-20MCG INHALER 4GM INH SCH ×3 (07:53→19:55)
[2022-08-13] MEDS: BISACODYL 5MG TAB PO SCH (09:00)
[2022-08-13] MEDS: SODIUM CHLORIDE NASAL 0.65% SPRAY BTL (OCEAN) SCH ×3 (09:43→20:59)
[2022-08-13] MEDS: DICLOFENAC EPOLAMINE 1.3% PATCH TOP SCH ×2 (09:44→20:59)
[2022-08-13] MEDS: LIDOCAINE 5% (LIDODERM) PATCH TD SCH (09:44)
[2022-08-13] MEDS: FLUTICASONE PROP 0.05% NASAL SPRAY 16 GM (FLONASE) NARES SCH ×2 (09:44→20:59)
[2022-08-13] MEDS: PANTOPRAZOLE 40MG TAB (PROTONIX) PO SCH (09:45)
[2022-08-13] MEDS: ASPIRIN 81MG ENTERIC TABLET PO SCH (09:45)
[2022-08-13] MEDS: guaiFENesin 200 MG TAB PO SCH ×3 (09:45→20:58)
[2022-08-13] MEDS: amLODIPine 5 MG TAB PO SCH ×2 (09:45→20:58)
[2022-08-13] MEDS: DOCUSATE SODIUM 100MG CAPSULE PO SCH ×2 (09:45→20:58)
[2022-08-13] MEDS: DULoxetine 30MG CAPSULE (CYMBALTA) PO SCH (09:45)
[2022-08-13] MEDS: REMEDY PHYTOPLEX Z-GUARD PASTE 113GM TUBE (FROM STOREROOM PRODUCT) TOP SCH ×3 (10:08→21:00)
[2022-08-13 14:00] VITALS: BP 137/63
[2022-08-13 19:59] VITALS: BP 141/66
[2022-08-13] MEDS: ATORVASTATIN 20 MG TAB PO SCH (20:58)
[2022-08-13] MEDS: SENNA 8.6 MG TAB (SENOKOT) PO SCH (20:58)
[2022-08-14] MEDS: HEPARIN SOD (PORCINE) 5000UNITS/ML 1ML VIAL/SYRINGE SC SCH ×2 (05:09→14:54)
[2022-08-14 06:00] VITALS: BP 147/67
[2022-08-14] MEDS: COMBIVENT RESPIMAT 100-20MCG INHALER 4GM INH SCH ×3 (07:08→21:02)
[2022-08-14] MEDS: REMEDY PHYTOPLEX Z-GUARD PASTE 113GM TUBE (FROM STOREROOM PRODUCT) TOP SCH ×3 (09:00→20:38)
[2022-08-14] MEDS: ASPIRIN 81MG ENTERIC TABLET PO SCH (09:00)
[2022-08-14] MEDS: DULoxetine 30MG CAPSULE (CYMBALTA) PO SCH (09:01)
[2022-08-14] MEDS: BISACODYL 5MG TAB PO SCH (09:01)
[2022-08-14] MEDS: DOCUSATE SODIUM 100MG CAPSULE PO SCH ×2 (09:01→20:37)
[2022-08-14] MEDS: guaiFENesin 200 MG TAB PO SCH ×3 (09:01→20:37)
[2022-08-14] MEDS: amLODIPine 5 MG TAB PO SCH ×2 (09:02→20:37)
[2022-08-14] MEDS: LIDOCAINE 5% (LIDODERM) PATCH TD SCH (09:03)
[2022-08-14] MEDS: DICLOFENAC EPOLAMINE 1.3% PATCH TOP SCH ×2 (09:03→20:38)
[2022-08-14] MEDS: SODIUM CHLORIDE NASAL 0.65% SPRAY BTL (OCEAN) SCH ×3 (09:03→20:38)
[2022-08-14] MEDS: FLUTICASONE PROP 0.05% NASAL SPRAY 16 GM (FLONASE) NARES SCH ×2 (09:03→20:38)
[2022-08-14] MEDS: PANTOPRAZOLE 40MG TAB (PROTONIX) PO SCH (09:05)
[2022-08-14 14:00] VITALS: BP 137/68
[2022-08-14 20:12] VITALS: BP 142/65
[2022-08-14] MEDS: ATORVASTATIN 20 MG TAB PO SCH (20:37)
[2022-08-14] MEDS: SENNA 8.6 MG TAB (SENOKOT) PO SCH (20:37)
[2022-08-15] MEDS: HEPARIN SOD (PORCINE) 5000UNITS/ML 1ML VIAL/SYRINGE SC SCH ×2 (05:34)
[2022-08-15 05:57] LABS: BASO % 0.4 % (0.0-1.0); EOS # 0.2 10^3/uL (0.0-0.5); EOS % 3.1 % (0.0-3.0); HEMATOCRIT 27.1 % (36.0-47.0); HEMOGLOBIN 8.7 g/dl (12.0-15.5); LYMPH # 1.5 10^3/uL (1.5-5.0); LYMPH % 28.9 % (24.0-44.0); MEAN CORPUSCULAR HEMOGLOBIN 34.3 pg (27.0-33.0); MEAN CORPUSCULAR HGB CONC 32.1 g/dl (32.0-36.5); MEAN CORPUSCULAR VOLUME 106.7 fl (80.0-96.0); MONO # 0.6 10^3/uL (0.0-0.8); MONO % 11.2 % (2.0-8.0); NEUTROPHILS # 2.9 10^3/uL (1.5-8.5); PLATELET COUNT, AUTOMATED 278 10^3/uL (150-450); RED BLOOD COUNT 2.54 10^6/uL (4.00-5.40); WHITE BLOOD COUNT 5.2 10^3/uL (4.0-10.0)
[2022-08-15 06:00] VITALS: BP 170/75
[2022-08-15 06:43] LABS: CALCIUM LEVEL 9.1 MG/DL (8.3-10.6); CREATININE FOR GFR 1.19 MG/DL (0.55-1.30); GLOMERULAR FILTRATION RATE 45.5 (>32); POTASSIUM SERUM 4.5 MMOL/L (3.5-5.1)
[2022-08-15 06:47] VITALS: BP 165/73
[2022-08-15] MEDS: COMBIVENT RESPIMAT 100-20MCG INHALER 4GM INH SCH (07:21)
[2022-08-15] MEDS: DICLOFENAC EPOLAMINE 1.3% PATCH TOP SCH (08:42)
[2022-08-15 08:43] VITALS: BP 165/73
[2022-08-15] MEDS: amLODIPine 5 MG TAB PO SCH (08:43)
[2022-08-15] MEDS: LIDOCAINE 5% (LIDODERM) PATCH TD SCH (08:43)
[2022-08-15] MEDS: DULoxetine 30MG CAPSULE (CYMBALTA) PO SCH (08:43)
[2022-08-15] MEDS: guaiFENesin 200 MG TAB PO SCH (08:43)
[2022-08-15] MEDS: ASPIRIN 81MG ENTERIC TABLET PO SCH (08:43)
[2022-08-15] MEDS: DOCUSATE SODIUM 100MG CAPSULE PO SCH (08:43)
[2022-08-15] MEDS: BISACODYL 5MG TAB PO SCH (08:43)
[2022-08-15] MEDS: PANTOPRAZOLE 40MG TAB (PROTONIX) PO SCH (08:43)
[2022-08-15] MEDS: SODIUM CHLORIDE NASAL 0.65% SPRAY BTL (OCEAN) SCH (08:44)
[2022-08-15] MEDS: FLUTICASONE PROP 0.05% NASAL SPRAY 16 GM (FLONASE) NARES SCH (08:44)
[2022-08-15] MEDS: REMEDY PHYTOPLEX Z-GUARD PASTE 113GM TUBE (FROM STOREROOM PRODUCT) TOP SCH (08:44)
[2022-08-15] MEDS ORDERED: PANT40TA29 PO (09:51)
[2022-08-15] MEDS ORDERED: ATOR1TAB21 PO (09:51)
[2022-08-15] MEDS ORDERED: AMLO1TAB24 PO (09:51)
[2022-08-15] MEDS ORDERED: LIDO5TD TD (09:51)
[2022-08-15] MEDS ORDERED: DIOV80TA3 PO (09:51)
[2022-08-15] MEDS ORDERED: CYMB1CAP5 PO (09:51)
[2022-08-15] MEDS ORDERED: ASPI81TAEC PO (09:51)
== END 2022-08-15 11:16 | DRG 56 ==
LOC: M PM&R 16:45
PROVIDERS: ADMIT Physical Medicine & Rehabilitation; ATTEND Physical Medicine & Rehabilitation
DX: I69.391 Dysphagia following cerebral infarction (principal); G93.41 Metabolic encephalopathy; N39.0 Urinary tract infection, site not specified; M62.82 Rhabdomyolysis; N17.9 Acute kidney failure, unspecified; R13.10 Dysphagia, unspecified; M17.0 Bilateral primary osteoarthritis of knee; R26.81 Unsteadiness on feet; H35.30 Unspecified macular degeneration; Z66 Do not resuscitate; I10 Essential (primary) hypertension; E87.5 Hyperkalemia; I69.318 Other symptoms and signs involving cognitive functions following cerebral infarction; G47.33 Obstructive sleep apnea (adult) (pediatric); B96.20 Unspecified Escherichia coli [E. coli] as the cause of diseases classified elsewhere; I69.320 Aphasia following cerebral infarction; M54.2 Cervicalgia; N32.9 Bladder disorder, unspecified; Z74.1 Need for assistance with personal care; Z74.09 Other reduced mobility; Z90.49 Acquired absence of other specified parts of digestive tract; Z90.710 Acquired absence of both cervix and uterus; Z79.82 Long term (current) use of aspirin; Z79.899 Other long term (current) drug therapy; Z88.0 Allergy status to penicillin; Z88.2 Allergy status to sulfonamides; Z88.8 Allergy status to other drugs, medicaments and biological substances

== ENCOUNTER → 2022-08-16 | Outpatient (REF) | payer MEDICARE ==
[~2022-08-16] MED LIST changes: +CYMB1CAP5 PO; +LIDO5TD TD; +PANT40TA29 PO; +POTA10CA32 PO; -POTA10CA33 PO
[2022-08-16 11:10] LABS: HEMATOCRIT 33.7 % (36.0-47.0); MEAN CORPUSCULAR HGB CONC 31.8 g/dl (32.0-36.5); PLATELET COUNT, AUTOMATED 338 10^3/uL (150-450); RED BLOOD COUNT 3.15 10^6/uL (4.00-5.40); WHITE BLOOD COUNT 4.9 10^3/uL (4.0-10.0)
[2022-08-16 11:18] LABS: HEMOGLOBIN 10.7 g/dl (12.0-15.5)
[2022-08-16 11:26] LABS: CALCIUM LEVEL 9.7 MG/DL (8.3-10.6); CREATININE FOR GFR 1.06 MG/DL (0.55-1.30); POTASSIUM SERUM 4.5 MMOL/L (3.5-5.1)
== END ==
LOC: SKLAB4 08:09
PROVIDERS: ATTEND Nurse Practitioner Family
DX: I10 Essential (primary) hypertension (principal)

== ENCOUNTER → 2022-08-22 | Outpatient (REF) ==
[~2022-08-22] MED LIST changes: -POTA10CA32 PO; +POTA10CA33 PO
[2022-08-22 06:45] LABS: HEMATOCRIT 30.8 % (36.0-47.0); MEAN CORPUSCULAR HEMOGLOBIN 34.5 pg (27.0-33.0); MEAN CORPUSCULAR HGB CONC 32.5 g/dl (32.0-36.5); MEAN CORPUSCULAR VOLUME 106.2 fl (80.0-96.0); PLATELET COUNT, AUTOMATED 164 10^3/uL (150-450); WHITE BLOOD COUNT 5.2 10^3/uL (4.0-10.0)
[2022-08-22 07:09] LABS: CALCIUM LEVEL 8.8 MG/DL (8.3-10.6); CREATININE FOR GFR 1.23 MG/DL (0.55-1.30); GLOMERULAR FILTRATION RATE 43.8 (>32); POTASSIUM SERUM 4.4 MMOL/L (3.5-5.1)
== END ==
LOC: SKLAB4 08:20
PROVIDERS: ATTEND Nurse Practitioner Family
DX: I10 Essential (primary) hypertension (principal)

== ENCOUNTER → 2022-08-29 | Outpatient (REF) | payer MEDICARE ==
[~2022-08-29] MED LIST changes: +ACET1TAB55 PO; +ASPI81TA26 PO; +CEFD300CAP PO; +DULO1CAP5 PO; +FLOM0.4C39 PO; +FURO40TA2 PO; +JARD1TAB PO; +LIDO5DIS41 TD; +LIPI80TA PO; +MIRA1POW3 PO; +PROC1AER16 PR; +SPIR-10 PO; +VALS1TAB66 PO; +VALS40TA9 PO
[2022-08-29 15:09] LABS: APPEARANCE, URINE MANUAL HAZY (CLEAR); COLOR, URINE MANUAL LT YELLOW (YELLOW)
[2022-08-29 15:10] LABS: BILIRUBIN, URINE MANUAL NEGATIVE (NEGATIVE); BLOOD URINE MANUAL POSITIVE (NEGATIVE); GLUCOSE, URINE (UA) MANUAL NEGATIVE (NEGATIVE); KETONE, URINE MANUAL NEGATIVE (NEGATIVE); LEUKOCYTE ESTERASE, URINE MAN POSITIVE (NEGATIVE); NITRITE, URINE MANUAL NEGATIVE (NEGATIVE); PROTEIN, URINE MANUAL 1+ mg/dL (NEGATIVE); SPECIFIC GRAVITY,URINE MANUAL 1.025 (1.002-1.035); UROBILINOGEN, URINE MANUAL NORMAL (NORMAL)
[2022-08-29 15:38] LABS: BACTERIA, URINE LARGE AMOUNT; HYALINE CAST, URINE NONE SEEN /lpf (0-1); SQUAMOUS EPITHELIAL CELL URINE LARGE AMOUNT /hpf (SMALL AMT); WBC, URINE 20-30 /hpf (0-3)
== END ==
LOC: SKLAB4 11:57
PROVIDERS: ATTEND Nurse Practitioner Family
DX: D64.9 Anemia, unspecified (principal); Z79.899 Other long term (current) drug therapy

== ENCOUNTER → 2022-08-29 | Outpatient (REF) ==
[~2022-08-29] MED LIST changes: -CEFD300CAP PO; -FLOM0.4C39 PO; -FURO40TA2 PO; -JARD1TAB PO; -MIRA1POW3 PO; -PROC1AER16 PR; -SPIR-10 PO; -VALS40TA9 PO
[2022-08-29 08:13] LABS: HEMATOCRIT 28.6 % (36.0-47.0); HEMOGLOBIN 9.3 g/dl (12.0-15.5); MEAN CORPUSCULAR HEMOGLOBIN 34.2 pg (27.0-33.0); MEAN CORPUSCULAR HGB CONC 32.5 g/dl (32.0-36.5); MEAN CORPUSCULAR VOLUME 105.1 fl (80.0-96.0); PLATELET COUNT, AUTOMATED 226 10^3/uL (150-450); RED BLOOD COUNT 2.72 10^6/uL (4.00-5.40); WHITE BLOOD COUNT 8.4 10^3/uL (4.0-10.0)
[2022-08-29 10:01] LABS: ALBUMIN 2.5 G/DL (3.2-5.2); ALKALINE PHOSPHATASE 92 U/L (46-116); ALT/SGPT 21 U/L (7.0-40); AST/SGOT 28 U/L (<34); BILIRUBIN,TOTAL 0.5 MG/DL (0.3-1.2); BLOOD UREA NITROGEN 55 MG/DL (9-23); CARBON DIOXIDE LEVEL 19 MMOL/L (20-31); CHLORIDE LEVEL 97 MMOL/L (98-107); CREATININE FOR GFR 1.87 MG/DL (0.55-1.30); GLUCOSE, FASTING 88 MG/DL (74-106); POTASSIUM SERUM 3.6 MMOL/L (3.5-5.1); SODIUM LEVEL 132 MMOL/L (136-145); TOTAL PROTEIN 5.5 G/DL (5.7-8.2)
[2022-08-29 20:47] LABS: VITAMIN B12 LEVEL QNS PG/ML (211-911)
== END ==
LOC: SKLAB4 12:07
PROVIDERS: ATTEND Nurse Practitioner Family
DX: I10 Essential (primary) hypertension (principal)

== ENCOUNTER 2022-08-30 15:29 | Inpatient (IN) | payer MEDICARE ==
[~2022-08-30] VITALS: Ht 167.6 cm; Wt 87.6 kg
[~2022-08-30 15:29] MED LIST changes: -ACET1TAB55 PO; -ASPI81TA26 PO; -DULO1CAP5 PO; -LIDO5DIS41 TD; -LIPI80TA PO; -VALS1TAB66 PO
[2022-08-30 17:37] LABS: VENOUS BASE EXCESS -0.6 (-2.0-2.0); VENOUS HCO3 24.9 MEQ/L (23.0-27.0); VENOUS O2 SATURATION 65.6 % (60.0-80.0); VENOUS PARTIAL PRESSURE CO2 44.2 mmHg (38.0-50.0); VENOUS PARTIAL PRESSURE O2 37.5 mmHg (30.0-50.0); VENOUS PH 7.369 UNITS (7.330-7.430); VENOUS STANDARD HCO3 23.2 MEQ/L; VENOUS TOTAL CO2 26.3 MEQ/L (24.0-28.0)
[2022-08-30 17:41] LABS: BASO % 0.3 % (0.0-1.0); EOS # 0.1 10^3/uL (0.0-0.5); EOS % 0.8 % (0.0-3.0); HEMATOCRIT 30.4 % (36.0-47.0); HEMOGLOBIN 9.9 g/dl (12.0-15.5); LYMPH # 0.8 10^3/uL (1.5-5.0); LYMPH % 9.9 % (24.0-44.0); MEAN CORPUSCULAR HGB CONC 32.6 g/dl (32.0-36.5); MEAN CORPUSCULAR VOLUME 104.5 fl (80.0-96.0); MONO # 0.6 10^3/uL (0.0-0.8); MONO % 7.9 % (2.0-8.0); NEUTROPHILS # 6.4 10^3/uL (1.5-8.5); NEUTROPHILS % 80.8 % (36.0-66.0); PLATELET COUNT, AUTOMATED 287 10^3/uL (150-450); RED BLOOD COUNT 2.91 10^6/uL (4.00-5.40); WHITE BLOOD COUNT 7.9 10^3/uL (4.0-10.0)
[2022-08-30 17:57] LABS: CK-MB VALUE MASS 1.1 NG/ML (<3.6)
[2022-08-30 18:00] LABS: BILIRUBIN,DIRECT 0.2 MG/DL (<0.4)
[2022-08-30 18:02] LABS: THYROID STIMULATING HORMONE 4.266 uIU/ML (0.55-4.78)
[2022-08-30 18:03] LABS: ALBUMIN 2.8 G/DL (3.2-5.2); BILIRUBIN,TOTAL 0.4 MG/DL (0.3-1.2); CALCIUM LEVEL 8.8 MG/DL (8.3-10.6); CREATININE FOR GFR 1.91 MG/DL (0.55-1.30); GLOMERULAR FILTRATION RATE 26.3 (>32); MB/CK RELATIVE INDEX 1.15 (< OR =4); POTASSIUM SERUM 3.8 MMOL/L (3.5-5.1); TOTAL PROTEIN 6.4 G/DL (5.7-8.2)
[2022-08-30 18:13] LABS: RSV AMPLIFICATION NEGATIVE (NEGATIVE)
[2022-08-30] MEDS ORDERED: NS 1,000 ML IV ONE ×2 (19:50)
[2022-08-30] MEDS ORDERED: ACETAMINOPHEN TAB 650MG DOSE (2X325MG) PO PRN (20:15)
[2022-08-30 20:29] LABS: OSMOLALITY URINE 438 MOSM/KG (50-1400)
[2022-08-30] MEDS ORDERED: AMLO1TAB24 PO (20:43)
[2022-08-30] MEDS ORDERED: DULO1CAP5 PO (20:43)
[2022-08-30] MEDS ORDERED: VALS1TAB66 PO (20:43)
[2022-08-30] MEDS ORDERED: ACET1TAB55 PO (20:43)
[2022-08-30] MEDS ORDERED: LIDO5DIS41 TD (20:43)
[2022-08-30] MEDS ORDERED: ASPI81TA26 PO (20:43)
[2022-08-30] MEDS ORDERED: ERGO500029 PO (20:43)
[2022-08-30] MEDS ORDERED: LIPI80TA PO (20:43)
[2022-08-30] MEDS ORDERED: PANT40TA29 PO (20:43)
[2022-08-30] MEDS ORDERED: HOME MED LIST COMPLETE! XX SCH (20:45)
[2022-08-30 20:56] LABS: TOTAL PROTEIN,RANDOM URINE 14.2 MG/DL (0.0-14.0)
[2022-08-30 21:01] LABS: CREATININE,RANDOM URINE 137.6 MG/DL
[2022-08-30 21:09] LABS: SODIUM,RANDOM URINE < 10 MMOL/L
[2022-08-30] MEDS: DOCUSATE SODIUM 100MG CAPSULE PO SCH (21:26)
[2022-08-30] MEDS: amLODIPine 5 MG TAB PO SCH (21:29)
[2022-08-30] MEDS: ASPIRIN 81MG ENTERIC TABLET PO SCH (21:29)
[2022-08-30] MEDS: ATORVASTATIN 20 MG TAB PO SCH (21:29)
[2022-08-31] MEDS: NS 1,000 ML IV SCH ×2 (00:52→08:28)
[2022-08-31 07:56] LABS: HEMATOCRIT 32.1 % (36.0-47.0); HEMOGLOBIN 10.5 g/dl (12.0-15.5); MEAN CORPUSCULAR HEMOGLOBIN 33.9 pg (27.0-33.0); MEAN CORPUSCULAR HGB CONC 32.7 g/dl (32.0-36.5); MEAN CORPUSCULAR VOLUME 103.5 fl (80.0-96.0); PLATELET COUNT, AUTOMATED 299 10^3/uL (150-450); WHITE BLOOD COUNT 7.7 10^3/uL (4.0-10.0)
[2022-08-31 08:07] LABS: MAGNESIUM LEVEL 2.4 MG/DL (1.8-2.4)
[2022-08-31 08:09] LABS: CALCIUM LEVEL 8.5 MG/DL (8.3-10.6); CREATININE FOR GFR 1.48 MG/DL (0.55-1.30); GLOMERULAR FILTRATION RATE 35.4 (>32)
[2022-08-31] MEDS: cefTRIAXone SOD 1 GM in D5W MINI-BAG PLUS 50 ML IV SCH (08:19)
[2022-08-31] MEDS: HEPARIN SOD (PORCINE) 5000UNITS/ML 1ML VIAL/SYRINGE SC SCH ×3 (08:19→20:58)
[2022-08-31] MEDS: DOCUSATE SODIUM 100MG CAPSULE PO SCH ×2 (08:20→19:36)
[2022-08-31] MEDS: DULoxetine 30MG CAPSULE (CYMBALTA) PO SCH (08:21)
[2022-08-31] MEDS: PANTOPRAZOLE 40MG TAB (PROTONIX) PO SCH (08:22)
[2022-08-31] MEDS: amLODIPine 5 MG TAB PO SCH ×2 (08:22→19:38)
[2022-08-31] MEDS: LIDOCAINE 5% (LIDODERM) PATCH TD SCH (08:25)
[2022-08-31 08:45] LABS: INR 0.99; PROTHROMBIN TIME 13.3 SECONDS (12.5-14.5)
[2022-08-31 08:46] LABS: PARTIAL THROMBOPLASTIN TIME 27.3 SECONDS (24.8-34.2)
[2022-08-31 12:52] VITALS: BP 116/60
[2022-08-31 13:03] LABS: ACETONE/KETONE 0.3 MMOL/L (0.02-0.27)
[2022-08-31 14:00] VITALS: BP 124/59
[2022-08-31] MEDS: ASPIRIN 81MG ENTERIC TABLET PO SCH (19:38)
[2022-08-31] MEDS: ATORVASTATIN 20 MG TAB PO SCH (19:38)
[2022-08-31 20:00] VITALS: BP 128/53
[2022-09-01 05:17] VITALS: BP 130/55
[2022-09-01] MEDS: HEPARIN SOD (PORCINE) 5000UNITS/ML 1ML VIAL/SYRINGE SC SCH ×3 (05:23→18:55)
[2022-09-01] MEDS: cefTRIAXone SOD 1 GM in D5W MINI-BAG PLUS 50 ML IV SCH (07:12)
[2022-09-01 07:49] LABS: HEMATOCRIT 28.1 % (36.0-47.0); HEMOGLOBIN 9.1 g/dl (12.0-15.5); MEAN CORPUSCULAR HEMOGLOBIN 34.5 pg (27.0-33.0); MEAN CORPUSCULAR HGB CONC 32.4 g/dl (32.0-36.5); MEAN CORPUSCULAR VOLUME 106.4 fl (80.0-96.0); PLATELET COUNT, AUTOMATED 257 10^3/uL (150-450); RED BLOOD COUNT 2.64 10^6/uL (4.00-5.40); WHITE BLOOD COUNT 7.2 10^3/uL (4.0-10.0)
[2022-09-01 07:59] LABS: CREATININE FOR GFR 1.27 MG/DL (0.55-1.30); GLOMERULAR FILTRATION RATE 42.2 (>32)
[2022-09-01] MEDS: DOCUSATE SODIUM 100MG CAPSULE PO SCH ×2 (08:09→18:48)
[2022-09-01] MEDS: PANTOPRAZOLE 40MG TAB (PROTONIX) PO SCH (08:10)
[2022-09-01] MEDS: amLODIPine 5 MG TAB PO SCH ×2 (08:10→18:50)
[2022-09-01] MEDS: DULoxetine 30MG CAPSULE (CYMBALTA) PO SCH (08:10)
[2022-09-01] MEDS: LIDOCAINE 5% (LIDODERM) PATCH TD SCH (08:11)
[2022-09-01 14:00] VITALS: BP 118/53
[2022-09-01] MEDS: ASPIRIN 81MG ENTERIC TABLET PO SCH (18:48)
[2022-09-01] MEDS: ATORVASTATIN 20 MG TAB PO SCH (18:48)
[2022-09-01] MEDS: CEFDINIR 300 MG CAP (OMNICEF) PO SCH (20:20)
[2022-09-02] MEDS: HEPARIN SOD (PORCINE) 5000UNITS/ML 1ML VIAL/SYRINGE SC SCH ×3 (05:06→20:04)
[2022-09-02 05:24] VITALS: BP 132/55
[2022-09-02] MEDS: DOCUSATE SODIUM 100MG CAPSULE PO SCH ×2 (07:47→20:03)
[2022-09-02] MEDS: DULoxetine 30MG CAPSULE (CYMBALTA) PO SCH (07:47)
[2022-09-02] MEDS: CEFDINIR 300 MG CAP (OMNICEF) PO SCH ×2 (07:47→20:03)
[2022-09-02] MEDS: PANTOPRAZOLE 40MG TAB (PROTONIX) PO SCH (07:47)
[2022-09-02] MEDS: amLODIPine 5 MG TAB PO SCH ×2 (07:48→20:03)
[2022-09-02] MEDS: LIDOCAINE 5% (LIDODERM) PATCH TD SCH (07:48)
[2022-09-02] MEDS: ASPIRIN 81MG ENTERIC TABLET PO SCH (20:03)
[2022-09-02] MEDS: ATORVASTATIN 20 MG TAB PO SCH (20:03)
[2022-09-02] MEDS ORDERED: guaiFENesin 200 MG TAB PO PRN (21:35)
[2022-09-03 04:40] VITALS: BP 138/56
[2022-09-03] MEDS: HEPARIN SOD (PORCINE) 5000UNITS/ML 1ML VIAL/SYRINGE SC SCH (05:34)
[2022-09-03] MEDS: PANTOPRAZOLE 40MG TAB (PROTONIX) PO SCH (08:14)
[2022-09-03] MEDS: DOCUSATE SODIUM 100MG CAPSULE PO SCH (08:14)
[2022-09-03] MEDS: CEFDINIR 300 MG CAP (OMNICEF) PO SCH (08:14)
[2022-09-03] MEDS: DULoxetine 30MG CAPSULE (CYMBALTA) PO SCH (08:14)
[2022-09-03 08:15] VITALS: BP 132/59
[2022-09-03] MEDS: amLODIPine 5 MG TAB PO SCH (08:15)
[2022-09-03] MEDS: LIDOCAINE 5% (LIDODERM) PATCH TD SCH (08:15)
[2022-09-03] MEDS ORDERED: VALS40TA9 PO (12:38)
[2022-09-03] MEDS ORDERED: CEFD300CAP PO (12:38)
== END 2022-09-03 14:06 | DRG 682 ==
LOC: EDBD 15:29 → M ED 15:29 → M ED INP 20:14 → ENRESERV 21:30 → M MSPAV 08-31 13:18
PROVIDERS: ADMIT Internal Medicine; ATTEND Internal Medicine
DX: N17.9 Acute kidney failure, unspecified (principal); G93.41 Metabolic encephalopathy; I50.32 Chronic diastolic (congestive) heart failure; E87.20 Acidosis, unspecified; N30.90 Cystitis, unspecified without hematuria; I11.0 Hypertensive heart disease with heart failure; K21.9 Gastro-esophageal reflux disease without esophagitis; G47.33 Obstructive sleep apnea (adult) (pediatric); E78.5 Hyperlipidemia, unspecified; B96.20 Unspecified Escherichia coli [E. coli] as the cause of diseases classified elsewhere; D53.9 Nutritional anemia, unspecified; Z86.73 Personal history of transient ischemic attack (TIA), and cerebral infarction without residual deficits; F41.9 Anxiety disorder, unspecified; F32.A Depression, unspecified; Z79.899 Other long term (current) drug therapy; Z79.82 Long term (current) use of aspirin; Z88.0 Allergy status to penicillin; Z88.2 Allergy status to sulfonamides; Z88.8 Allergy status to other drugs, medicaments and biological substances

== ENCOUNTER → 2022-08-30 | Outpatient (REF) ==
[2022-08-30 13:02] LABS: CALCIUM LEVEL 8.5 MG/DL (8.3-10.6); CREATININE FOR GFR 1.97 MG/DL (0.55-1.30); GLOMERULAR FILTRATION RATE 25.4 (>32); POTASSIUM SERUM 3.3 MMOL/L (3.5-5.1)
== END ==
LOC: SKLAB4 11:15
PROVIDERS: ATTEND Nurse Practitioner Family
DX: R41.82 Altered mental status, unspecified (principal)

== ENCOUNTER → 2022-09-04 | Outpatient (REF) ==
[~2022-09-04] MED LIST changes: +ACET1TAB55 PO; +ASPI81TA26 PO; +CEFD300CAP PO; +DULO1CAP5 PO; +LIDO5DIS41 TD; +LIPI80TA PO; +VALS1TAB66 PO; +VALS40TA9 PO
== END ==
LOC: SKLAB4 08:19
PROVIDERS: ATTEND Nurse Practitioner Family
DX: N17.9 Acute kidney failure, unspecified (principal); Z53.8 Procedure and treatment not carried out for other reasons

== ENCOUNTER → 2022-09-04 | Outpatient (REF) | LOC: SKLAB4 12:38 | PROVIDERS: ATTEND Internal Medicine | DX: I50.9 Heart failure, unspecified (principal); J90 Pleural effusion, not elsewhere classified ==

== ENCOUNTER → 2022-09-12 | Outpatient (REF) ==
[2022-09-12 07:16] LABS: CALCIUM LEVEL 8.6 MG/DL (8.3-10.6); CREATININE FOR GFR 1.47 MG/DL (0.55-1.30); GLOMERULAR FILTRATION RATE 35.6 (>32); POTASSIUM SERUM 4.1 MMOL/L (3.5-5.1)
== END ==
LOC: SKLAB4 08:39
PROVIDERS: ATTEND Internal Medicine
DX: I50.9 Heart failure, unspecified (principal)

== ENCOUNTER → 2022-09-20 | Outpatient (REF) ==
[2022-09-20 08:58] LABS: CALCIUM LEVEL 8.2 MG/DL (8.3-10.6); CREATININE FOR GFR 1.59 MG/DL (0.55-1.30); GLOMERULAR FILTRATION RATE 32.5 (>32); POTASSIUM SERUM 3.8 MMOL/L (3.5-5.1)
== END ==
LOC: SKLAB4 08:07
PROVIDERS: ATTEND Internal Medicine
DX: I50.9 Heart failure, unspecified (principal)

== ENCOUNTER → 2022-09-24 | Outpatient (REF) ==
[2022-09-24 09:40] LABS: BASO % 0.3 % (0.0-1.0); EOS # 0.2 10^3/uL (0.0-0.5); EOS % 1.7 % (0.0-3.0); HEMATOCRIT 34.6 % (36.0-47.0); HEMOGLOBIN 10.7 g/dl (12.0-15.5); LYMPH # 3.1 10^3/uL (1.5-5.0); LYMPH % 25.5 % (24.0-44.0); MEAN CORPUSCULAR HEMOGLOBIN 32.7 pg (27.0-33.0); MEAN CORPUSCULAR HGB CONC 30.9 g/dl (32.0-36.5); MEAN CORPUSCULAR VOLUME 105.8 fl (80.0-96.0); MONO # 0.9 10^3/uL (0.0-0.8); MONO % 7.7 % (2.0-8.0); NEUTROPHILS # 7.7 10^3/uL (1.5-8.5); NEUTROPHILS % 64.3 % (36.0-66.0); PLATELET COUNT, AUTOMATED 333 10^3/uL (150-450); RED BLOOD COUNT 3.27 10^6/uL (4.00-5.40)
[2022-09-24 09:56] LABS: ALBUMIN 2.3 G/DL (3.2-5.2); BILIRUBIN,TOTAL 0.4 MG/DL (0.3-1.2); CALCIUM LEVEL 9.2 MG/DL (8.3-10.6); CREATININE FOR GFR 1.75 MG/DL (0.55-1.30); GLOMERULAR FILTRATION RATE 29.1 (>32); POTASSIUM SERUM 4.4 MMOL/L (3.5-5.1); TOTAL PROTEIN 6.5 G/DL (5.7-8.2)
== END ==
LOC: SKLAB4 08:27
PROVIDERS: ATTEND Nurse Practitioner Family
DX: J98.4 Other disorders of lung (principal); R50.9 Fever, unspecified

== ENCOUNTER → 2022-09-24 | Outpatient (REF) | payer MEDICARE | LOC: SKLAB4 02:15 | PROVIDERS: ATTEND Internal Medicine | DX: R06.00 Dyspnea, unspecified (principal); R50.9 Fever, unspecified ==

== ENCOUNTER → 2022-09-24 | Outpatient (REF) | payer MEDICARE | LOC: SKLAB4 05:25 | PROVIDERS: ATTEND Internal Medicine | DX: R06.00 Dyspnea, unspecified (principal); R50.9 Fever, unspecified; Z53.8 Procedure and treatment not carried out for other reasons ==

== ENCOUNTER → 2022-09-25 | Outpatient (REF) ==
[2022-09-25 15:01] LABS: APPEARANCE, URINE MANUAL CLOUDY (CLEAR); BILIRUBIN, URINE MANUAL NEGATIVE (NEGATIVE); BLOOD URINE MANUAL POSITIVE (NEGATIVE); COLOR, URINE MANUAL LT YELLOW (YELLOW); GLUCOSE, URINE (UA) MANUAL 2+(250 MG/DL) mg/dL (NEGATIVE); KETONE, URINE MANUAL NEGATIVE (NEGATIVE); LEUKOCYTE ESTERASE, URINE MAN POSITIVE (NEGATIVE); NITRITE, URINE MANUAL NEGATIVE (NEGATIVE); PROTEIN, URINE MANUAL TRACE mg/dL (NEGATIVE); SPECIFIC GRAVITY,URINE MANUAL 1.015 (1.002-1.035); UROBILINOGEN, URINE MANUAL NORMAL (NORMAL)
[2022-09-25 15:41] LABS: SQUAMOUS EPITHELIAL CELL URINE LARGE AMOUNT /hpf (SMALL AMT)
[2022-09-25 15:43] LABS: BACTERIA, URINE LARGE AMOUNT
== END ==
LOC: SKLAB4 10:45
PROVIDERS: ATTEND Internal Medicine
DX: D72.829 Elevated white blood cell count, unspecified (principal)

== ENCOUNTER → 2022-09-27 | Outpatient (REF) ==
[2022-09-27 09:10] LABS: CALCIUM LEVEL 8.5 MG/DL (8.3-10.6); CREATININE FOR GFR 1.88 MG/DL (0.55-1.30); GLOMERULAR FILTRATION RATE 26.8 (>32); POTASSIUM SERUM 3.9 MMOL/L (3.5-5.1)
== END ==
LOC: SKLAB4 09:42
PROVIDERS: ATTEND Internal Medicine
DX: I50.9 Heart failure, unspecified (principal)

== ENCOUNTER → 2022-10-02 | Outpatient (CLI) | payer MEDICARE ==
[~2022-10-02] MED LIST changes: +FLOM0.4C39 PO; +FURO40TA2 PO; +JARD1TAB PO; +MIRA1POW3 PO; +PROC1AER16 PR; +SPIR-10 PO
== END ==
LOC: M RAD 14:07
PROVIDERS: ATTEND Internal Medicine
DX: R10.9 Unspecified abdominal pain (principal); Z53.9 Procedure and treatment not carried out, unspecified reason

== ENCOUNTER → 2022-10-02 | Outpatient (REF) ==
[~2022-10-02] MED LIST changes: -FLOM0.4C39 PO; -MIRA1POW3 PO; -PROC1AER16 PR
== END ==
LOC: SKLAB4 12:50
PROVIDERS: ATTEND Internal Medicine
DX: R10.9 Unspecified abdominal pain (principal); I87.8 Other specified disorders of veins; M43.00 Spondylolysis, site unspecified

== ENCOUNTER → 2022-10-04 | Outpatient (REF) | LOC: SKLAB4 08:21 | PROVIDERS: ATTEND Internal Medicine | DX: I50.9 Heart failure, unspecified (principal); Z53.8 Procedure and treatment not carried out for other reasons ==

== ENCOUNTER → 2022-10-21 | Outpatient (REF) ==
[~2022-10-21] MED LIST changes: +FLOM0.4C39 PO; +MIRA1POW3 PO; +PROC1AER16 PR
[2022-10-21 17:22] LABS: BASO % 0.2 % (0.0-1.0); EOS # 0.1 10^3/uL (0.0-0.5); EOS % 1.7 % (0.0-3.0); HEMATOCRIT 25.5 % (36.0-47.0); HEMOGLOBIN 8.2 g/dl (12.0-15.5); LYMPH # 1.3 10^3/uL (1.5-5.0); LYMPH % 24.8 % (24.0-44.0); MEAN CORPUSCULAR HEMOGLOBIN 33.9 pg (27.0-33.0); MEAN CORPUSCULAR HGB CONC 32.2 g/dl (32.0-36.5); MEAN CORPUSCULAR VOLUME 105.4 fl (80.0-96.0); MONO # 0.6 10^3/uL (0.0-0.8); MONO % 11.3 % (2.0-8.0); NEUTROPHILS # 3.3 10^3/uL (1.5-8.5); NEUTROPHILS % 61.6 % (36.0-66.0); PLATELET COUNT, AUTOMATED 294 10^3/uL (150-450); RED BLOOD COUNT 2.42 10^6/uL (4.00-5.40); WHITE BLOOD COUNT 5.3 10^3/uL (4.0-10.0)
[2022-10-21 17:42] LABS: ALBUMIN 2.2 G/DL (3.2-5.2); BILIRUBIN,TOTAL 0.6 MG/DL (0.3-1.2); CALCIUM LEVEL 8.6 MG/DL (8.3-10.6); CREATININE FOR GFR 1.31 MG/DL (0.55-1.30); GLOMERULAR FILTRATION RATE 40.7 (>32); POTASSIUM SERUM 4.5 MMOL/L (3.5-5.1); TOTAL PROTEIN 5.4 G/DL (5.7-8.2)
== END ==
LOC: SKLAB4 14:20
PROVIDERS: ATTEND Internal Medicine
DX: R63.4 Abnormal weight loss (principal)

== ENCOUNTER → 2022-10-24 | Outpatient (REF) | payer MEDICARE ==
[2022-10-24 07:41] LABS: CREATININE FOR GFR 1.32 MG/DL (0.55-1.30); GLOMERULAR FILTRATION RATE 40.3 (>32); POTASSIUM SERUM 4.2 MMOL/L (3.5-5.1)
== END ==
LOC: SKLAB4 12:00
PROVIDERS: ATTEND Internal Medicine
DX: I50.9 Heart failure, unspecified (principal)

== ENCOUNTER → 2022-11-21 | Outpatient (REF) | payer MEDICARE ==
[2022-11-21 09:42] LABS: CALCIUM LEVEL 8.8 MG/DL (8.3-10.6); CREATININE FOR GFR 1.12 MG/DL (0.55-1.30); GLOMERULAR FILTRATION RATE 48.8 (>32); POTASSIUM SERUM 3.8 MMOL/L (3.5-5.1)
== END ==
LOC: SKLAB4 09:51
PROVIDERS: ATTEND Internal Medicine
DX: I50.9 Heart failure, unspecified (principal)

== ENCOUNTER → 2022-12-26 | Outpatient (REF) | payer MEDICARE ==
[2022-12-26 08:57] LABS: CALCIUM LEVEL 9.3 MG/DL (8.3-10.6); CREATININE FOR GFR 1.3 MG/DL (0.55-1.30); GLOMERULAR FILTRATION RATE 41.1 (>32); POTASSIUM SERUM 3.8 MMOL/L (3.5-5.1)
== END ==
LOC: SKLAB4 09:11
PROVIDERS: ATTEND Internal Medicine
DX: I50.9 Heart failure, unspecified (principal)

== ENCOUNTER → 2023-01-23 | Outpatient (REF) | payer MEDICARE ==
[2023-01-23 08:04] LABS: CALCIUM LEVEL 9.3 MG/DL (8.3-10.6); CREATININE FOR GFR 1.32 MG/DL (0.55-1.30); GLOMERULAR FILTRATION RATE 40.3 (>32); POTASSIUM SERUM 4.3 MMOL/L (3.5-5.1)
== END ==
LOC: SKLAB4 09:08
PROVIDERS: ATTEND Internal Medicine
DX: I50.9 Heart failure, unspecified (principal)

== ENCOUNTER 2023-02-25 06:46 | Emergency (ER) | payer MEDICARE ==
[~2023-02-25] VITALS: Ht 160 cm; Wt 102.0 kg
[~2023-02-25 06:46] MED LIST changes: -POTA10CA33 PO; +POTA10CA60 PO
[2023-02-25] MEDS ORDERED: NS 1,000 ML IV SCH (08:45)
[2023-02-25 09:17] VITALS: BP 131/63; TEMP 97.2; O2SAT 97
== END 2023-02-25 09:20 | disposition short-term general hospital (02) ==
LOC: M ED 06:46
DX: S06.6X0A Traumatic subarachnoid hemorrhage without loss of consciousness, initial encounter (principal); S06.360A Traumatic hemorrhage of cerebrum, unspecified, without loss of consciousness, initial encounter; W19.XXXA Unspecified fall, initial encounter; Y92.129 Unspecified place in nursing home as the place of occurrence of the external cause; I50.9 Heart failure, unspecified; N18.4 Chronic kidney disease, stage 4 (severe); G47.33 Obstructive sleep apnea (adult) (pediatric); Z86.73 Personal history of transient ischemic attack (TIA), and cerebral infarction without residual deficits; M85.80 Other specified disorders of bone density and structure, unspecified site; Z79.82 Long term (current) use of aspirin; Z79.899 Other long term (current) drug therapy; Z88.0 Allergy status to penicillin; Z88.8 Allergy status to other drugs, medicaments and biological substances; Z88.2 Allergy status to sulfonamides

== ENCOUNTER → 2023-02-27 | Outpatient (REF) | payer MEDICARE ==
[2023-02-27 08:25] LABS: CALCIUM LEVEL 9.9 MG/DL (8.3-10.6); CREATININE FOR GFR 1.2 MG/DL (0.55-1.30); POTASSIUM SERUM 3.4 MMOL/L (3.5-5.1)
== END ==
LOC: SKLAB4 08:49
PROVIDERS: ATTEND Internal Medicine
DX: I50.9 Heart failure, unspecified (principal)